=== PATIENT | female | born 1960 | race Caucasian/White ===

== ENCOUNTER 2018-08-07 15:58 | Outpatient (CLI) | payer MEDICARE, SELFPAY ==
--- NOTE | 2018-08-07 11:17 | DI.RAD_ITS ---
SYMPTOM/DIAGNOSIS: NECK PAIN M54.2 CERVICAL SPINE: Odontoid, AP lateral and bilateral oblique views: The odontoid is intact. The lateral masses are well aligned. Comparison examination is 10/07/16 There are again seen post surgical changes of anterior cervical disc fusion at C4-C5. There are end plate osteophytes at all levels of the cervical spine. Mild disc space narrowing is seen at C6-C7. There are hypertrophic changes of the facets noted. There is mild to moderate narrowing of the neural foramen bilaterally from C3-4 through C6-7. No acute fractures or subluxations are seen. The prevertebral soft tissues are unremarkable. IMPRESSION: Moderate degenerative changes in the cervical spine.
== END 2018-08-07 16:18 ==
PROVIDERS: PCP Family Medicine; Visit Provider Family Medicine
DX: M54.2 Cervicalgia (principal); M50.323 Other cervical disc degeneration at C6-C7 level; Z98.1 Arthrodesis status
CPT/HCPCS: 72050

== ENCOUNTER 2019-06-14 11:58 | Outpatient (CLI) | payer MEDICARE, SELFPAY ==
--- NOTE | 2019-06-14 11:30 | DI.RAD_ITS ---
SYMPTOM/DIAGNOSIS: PAIN, R52 LEFT SHOULDER: There is mild spurring at the AC joint. There is a calcification seen adjacent to the humeral head which could indicate calcific tendinitis. There is mild spurring at the glenoid. The humeral head is normally positioned. IMPRESSION: Mild degenerative changes. Calcific tendinosis.
[2019-06-14 12:45] LABS: Abs Immature Grans 0.01 k/cumm (0.0-0.09); Absolute Basophil Count 0.01 k/cumm (0.0-0.2); Absolute Eosinophil Count 0.09 k/cumm (0.0-0.7); Absolute Lymphocyte Count 2.01 k/cumm (1.2-3.4); Absolute Monocyte Count 0.33 k/cumm (0.11-0.7); Absolute Neutrophil Count 2.04 k/cumm (1.2-6.7); Basophils % 0.2; HGB 12.8 g/dL (12.0-15.5); Immature Grans % 0.2; Lymphocytes % 44.8; Mean Corp. HGB Concentration 32.8 g/dL (32.0-36.0); Mean Corpuscular Hemoglobin 31.4 pg (27.0-33.0); Mean Corpuscular Volume 95.8 fL (80-95); Mean Platelet Volume 10.5 fL (8.0-11.0); Monocytes % 7.3; Neutrophils % 45.5; Platelet Count 206 x1000/uL (130-400); RBC 4.07 m/cumm (4.00-5.20); RBC Distribution Width 13.1 % (11.7-14.6); White Blood Cell Count 4.49 k/cumm (4.4-10.8)
[2019-06-14 14:18] LABS: ALT 23 U/L (12-78); AST 18 U/L (15-37); Albumin 3.6 g/dL (3.4-5.0); Alkaline Phosphatase 79 U/L (46-116); Anion Gap 6.6 mmol/L (3-11); BUN 12 mg/dL (7-18); Bilirubin, Total 0.2 mg/dL (0.2-1.0); CO2 30.4 mmol/L (21.0-32.0); CREATININE 0.96 mg/dL (0.55-1.02); Chloride 104 mmol/L (98-107); Estimated GFR 59.49 (mL/min/1.73m2); Glucose 111 mg/dL (70-100); Potassium 4.6 mmol/L (3.5-5.1); Sodium 141 mmol/L (136-145); TSH (W/Ref FT4) 3.12 uIU/mL (0.36-3.74); Total Protein 6.6 g/dL (6.4-8.2)
== END 2019-06-14 12:18 ==
PROVIDERS: PCP Family Medicine; Visit Provider Internal Medicine
DX: M25.512 Pain in left shoulder (principal); E03.9 Hypothyroidism, unspecified; R50.9 Fever, unspecified; M54.2 Cervicalgia; M79.7 Fibromyalgia; M19.012 Primary osteoarthritis, left shoulder; M75.32 Calcific tendinitis of left shoulder
CPT/HCPCS: 36415; 80053; 73030; 84443; 85025

== ENCOUNTER 2020-01-31 10:37 | Outpatient (CLI) | payer MEDICARE, SELFPAY ==
--- NOTE | 2020-01-31 10:30 | DI.RAD_ITS ---
EXAM: XR WRIST RT COMPLETE CLINICAL HISTORY: R wrist pain TECHNIQUE: COMPARISON: No exams were available for comparison FINDINGS: Three views were obtained. Carpal alignment appears within normal limits. Minimal degenerative spur ring noted at navicular multangular joint. Otherwise the bones appear intact. IMPRESSION:
== END 2020-01-31 10:57 ==
PROVIDERS: PCP Family Medicine; Referring Provider Family Medicine; Visit Provider Student in an Organized Health Care Education/Training Program
DX: M25.531 Pain in right wrist (principal); M19.031 Primary osteoarthritis, right wrist; M65.4 Radial styloid tenosynovitis [de Quervain]
CPT/HCPCS: 20550; 99214; 73110; J1030

== ENCOUNTER → 2020-04-27 09:15 | Outpatient (BNVA) | payer MEDICARE, SELFPAY | PROVIDERS: PCP Family Medicine; Referring Provider Family Medicine; Visit Provider Student in an Organized Health Care Education/Training Program | DX: M65.4 Radial styloid tenosynovitis [de Quervain] (principal); M65.831 Other synovitis and tenosynovitis, right forearm | CPT/HCPCS: 20551; 99213; J1030 ==

== ENCOUNTER 2020-08-21 08:55 | Outpatient (CLI) | payer MEDICARE, SELFPAY ==
[2020-08-23 06:29] LABS: Patient Race White; SARS-CoV-2 RNA Undetected (Undetected); SARS-CoV-2 Specimen Source Nasopharynx
== END 2020-08-21 09:15 ==
PROVIDERS: PCP Nurse Practitioner; Visit Provider Nurse Practitioner
DX: J02.9 Acute pharyngitis, unspecified (principal); R05 Cough
CPT/HCPCS: U0003

== ENCOUNTER 2020-08-28 01:15 | Outpatient (CLI) | payer MEDICARE, SELFPAY ==
--- NOTE | 2020-08-28 06:46 | DI.MRI_ITS ---
EXAM: MR CERVICAL SPINE WO CLINICAL HISTORY: IMPINGEMENT SYNDROME LT SHOULDER,M75.42 TECHNIQUE: Multiplanar multisequence MRI of the cervical spine was performed without intravenous con trast. COMPARISON: MR MRI - CERVICAL SPINE WO CONT from 11/08/2010 CR CERV SP.WITH OBL OR FLEX/EXT from 10/07/2016 FINDINGS: There has been previous anterior fusion from C4 through C6. At C2-3, there is moderate loss of disc height. There are prominent endplate osteophytes and disc bul ging. The osteophytes are eccentric toward the right. There is effacement of the anterior CSF space and right neural foraminal narrowing. At C3-4, there are broad-based disc osteophytes, also eccentric toward the right. There is severe jorge l ateral neural foraminal narrowing, greater on the right. There is also narrowing of the AP dimension of the canal. There is also some thinning of the cord at this level. Canal is patent at the level of the fusion. There is some high signal within the cord at the C6-7 lev el. There is loss of disc height and broad-based disc osteophytes at C6-7 causing bilateral neural fo raminal narrowing and narrowing of the AP dimension of the canal. The C7-T1 and T1-2 levels are unrem arkable. There are small disc osteophytes at T2-3. IMPRESSION: Postsurgical changes with anterior fusion in the mid to lower cervical spine. Degenerative disc goff es at the remaining levels cause bilateral neural foraminal narrowing and narrowing of the AP dimensi on of the canal. Abnormal high signal is seen in the cord at the C6 and C7 levels. Cord thinning is s een at the C3-4 level. DATA REPOSITORY:
--- NOTE | 2020-08-28 06:46 | DI.MRI_ITS ---
EXAM: MR LUMBAR SPINE WO CLINICAL HISTORY: LT LUMBAR RADICULOPATHY,M54.16. TECHNIQUE: Multiplanar multisequence MRI was performed. COMPARISON: MR MRI - LUMBAR SPINE WO CONTRAST from 07/04/2015 FINDINGS: The vertebral bodies are well maintained in height. The conus medullaris appears normal. There is mi ld disc bulging in the lower thoracic levels and from L1-2 throughout L3-4. At L4-5, there is moderat e disc bulging, eccentric toward the left. There are prominent facet degenerative changes and ligamen tous hypertrophy. There is severe neural foraminal encroachment on the left side. There is slight emy tral canal stenosis. There is mild right neural foraminal narrowing. The facet degenerative changes c ause mild spondylolisthesis. Prominent facet degenerative changes are also seen at L 5 S1. There is n o significant central canal stenosis or neural foraminal narrowing. IMPRESSION: Combination of disc bulging and facet degenerative changes causes severe left neural foraminal narro wing at L4-5. There is also mild spondylolisthesis and mild central canal stenosis. DATA REPOSITORY:
== END 2020-08-28 01:35 ==
PROVIDERS: PCP Nurse Practitioner; Visit Provider Nurse Practitioner
DX: M47.812 Spondylosis without myelopathy or radiculopathy, cervical region (principal); M48.02 Spinal stenosis, cervical region; M75.42 Impingement syndrome of left shoulder; M43.16 Spondylolisthesis, lumbar region; M54.16 Radiculopathy, lumbar region; M48.061 Spinal stenosis, lumbar region without neurogenic claudication
CPT/HCPCS: 72141; 72148

== ENCOUNTER → 2020-09-04 12:50 | Outpatient (BNVA) | payer MEDICARE, SELFPAY | PROVIDERS: PCP Nurse Practitioner; Referring Provider Nurse Practitioner; Visit Provider Surgery | DX: M79.89 Other specified soft tissue disorders (principal); Z11.59 Encounter for screening for other viral diseases | CPT/HCPCS: 99203; 99213 ==

== ENCOUNTER 2020-09-08 02:06 | Outpatient (CLI) | payer MEDICARE, SELFPAY ==
[2020-09-11 09:59] LABS: SARS-CoV-2 RNA Not Detected (NotDetected); SARS-CoV-2 RNA Source Nasal/Nares
== END 2020-09-08 02:26 ==
PROVIDERS: PCP Nurse Practitioner; Visit Provider Surgery
DX: Z01.818 Encounter for other preprocedural examination (principal); Z11.59 Encounter for screening for other viral diseases
CPT/HCPCS: U0003

== ENCOUNTER 2020-09-29 01:41 | Outpatient (CLI) | payer MEDICARE, SELFPAY ==
[2020-10-01 11:59] LABS: SARS-CoV-2 RNA Not Detected (NotDetected)
[2020-10-01 12:00] LABS: SARS-CoV-2 RNA Source Nasal/Nares
== END 2020-09-29 02:01 ==
PROVIDERS: PCP Nurse Practitioner; Visit Provider Surgery
DX: Z11.59 Encounter for screening for other viral diseases (principal); Z01.818 Encounter for other preprocedural examination
CPT/HCPCS: U0003

== ENCOUNTER 2020-10-03 06:12 | Day surgery (SDC) | payer MEDICARE, SELFPAY ==
[2020-10-03 06:28] VITALS: BP 97/72; PULSE 56; RESP 17; TEMP 36.8; O2SAT 97
[2020-10-03] MEDS: Lactated Ringers 1,000 ML 80 ML IV (06:59)
--- NOTE | 2020-10-03 07:10 | PDOC.DSDIS_ITS ---
Discharge Plan Disposition Patient Disposition: HOME Condition: Good Discharge Details Reason For Visit: Excision right elbow lipoma Attending Provider: Jennifer Calloway Primary Care Provider: Reva Hernandez Home Meds and New Rx's Prescriptions: Continued oxycodone 5 mg capsule 5 mg PO Q4H PRN MDD 30 mg Qty: 60 RF: 0 oxybutynin chloride 5 mg tablet 5 mg PO BID Qty: 180 RF: 4 escitalopram oxalate 20 mg tablet 20 mg PO DAILY Qty: 90 RF: 4 multivitamin 1 EACH tablet 1 ea PO DAILY RF: 0 tizanidine 4 mg capsule 4 mg PO TID PRN (Reason: muscle spasticity) Qty: 90 RF: 3 levothyroxine 25 mcg tablet 25 mcg PO DAILY Qty: 90 RF: 4 lorazepam 0.5 mg tablet 0.5 mg PO BID PRN (Reason: anxiety) Qty: 20 RF: 0 gabapentin 300 mg capsule 600 mg PO TID Qty: 270 RF: 4 imipramine HCl 10 mg tablet 10 mg PO HS Qty: 90 RF: 4 zinc 50 mg Capsule 50 mg PO BID RF: 0 cholecalciferol (vitamin D3) [Vitamin D3] 125 mcg (5,000 unit) Tablet 125 mcg PO DAILY RF: 0 B12 Active 1,000 mcg Tablet,Chewable 2,500 mcg PO DAILY RF: 0 Discharge Instructions Additional Instructions: The top bandage can be removed tomorrow. The steri strips will usually stick for about a week. When the edges start to curl up, they can be removed. It is okay to shower tomorrow, the water can run over the steri strips Do not swim or soak in a tub for two weeks Call for any concerns including fever, increased pain, incision redness or drainage. Keep lifting light for a week. Walking and stairs are fine. Do not drive if on narcotic pain meds or if limited by pain. May use Tylenol alternating with ibuprofen for pain control. Ice is also an option. The maximum dose for Tylenol is 4000 mg/day. May use ibuprofen 800 mg every 8 hours as needed. If concerned about constipation, you may use a stool softener or milk of magnesia. Referrals: Jennifer Calloway MD [ [facility] STAFF PHYSICIAN] - (Return as needed for a postop check) Activity:: Keep lifting light for one week Remove Dressings/Wound Care:: 24 hours Shower/Bathe:: 24 hours Diet:: As Tolerated Discharge Orders Discharge Orders: Discharge Order (Routine); Ordered 10/03/20 Ordered By: Jennifer Calloway DS: Diagnosis Discharge Diagnosis (1) Mass of soft tissue of elbow: Status: Acute
--- NOTE | 2020-10-03 07:13 | ROE_ITS ---
Date of service: 10/03/20 Time of Service: 08:26 Operative Note Operative Note DATE OF PROCEDURE: 10/03/20 PRE-OP DIAGNOSIS: Right elbow soft tissue mass POST-OP DIAGNOSIS: other (Right elbow lipoma) PROCEDURE: Excision right elbow soft tissue mass SURGEON: Jennifer Calloway CLERK TELEGRAPH SERVICE: Lyubov Barriga ANESTHESIA: MAC and local Indications: This 60 year old female presents with a bothersome soft tissue mass on her medial right elbow. Procedure Description: The patient was placed supine on the operating table and her right elbow prepped and draped sterilely. The mass was located in the antecubital fossa at the more medial aspect. The skin here was infiltrated with local anesthetic and a transverse incision made over the lump. Subcutaneous tissue was divided sharply to reveal a well-defined and slightly lobulated lipo ma. This was dissected free of the surrounding subcutaneous tissue with a combination of blunt and sharp dissection. It was removed intact and measured approximately 5 cm. This was sent to pathology. No residual lipoma was palpated in the cavity. There is good hemostasis so the subcutaneous tissue was closed with interrupted 4 Monocryl suture and the skin closed with a running 4 Monocryl subcuticular stitch. She tolerated the procedure well and was stable to recovery
[2020-10-03] MEDS: Bupivacaine 0.5% Pres-Free 30 ML VIAL (08:00)
--- NOTE | 2020-10-03 08:06 | SOFT_PTH ---
PATIENT: Liss Viera LOC: [facility] U#:[id number] AGE/SX: 60/F ROOM: RE10/03/[address]: Jennifer Calloway MD : 1960 BED: DIS: 10/03/2020 SPEC #: [id number] RECD: 10/03/20 12:59 STATUS: BC REQ #: [id number] MADDIE: 10/03/20 08:[address]: Jennifer Calloway DEPT: Surgical Specimen RECD BY: Liss Ann ENTERED: 10/03/20 13:00 SP TYPE: SOFT OTHR DR: Reva Hernandez, PhD GROUND OPERATIONS SUPERVISOR Tissues: 1 - SOFT TISSUE MISC (INC. LIPOMA) Procedures: GROSS AND MICRO LEVEL 3 Comments: [id number]
[2020-10-03] MEDS: Lidocaine 1% Multi-Dose 50 ML VIAL (08:15)
[2020-10-03 08:51] VITALS: BP 93/54; PULSE 50; RESP 16; TEMP 36.2; O2SAT 96
== END 2020-10-03 09:12 | disposition home or self-care (01) ==
PROVIDERS: PCP Nurse Practitioner; Visit Provider Surgery
PROC: (CPT 24071; principal; 2020-10-03 07:30)
DX: D17.21 Benign lipomatous neoplasm of skin and subcutaneous tissue of right arm (principal); E03.9 Hypothyroidism, unspecified; R00.1 Bradycardia, unspecified; G47.30 Sleep apnea, unspecified
CPT/HCPCS: 24071; 88304; J2001; J2405; J3010

== ENCOUNTER 2020-10-18 01:28 | Outpatient (CLI) | payer MEDICARE, SELFPAY ==
--- NOTE | 2020-10-18 | DI.MAMMO_ITS ---
EXAM: MG MAMMO SCREEN CALL BACK BI CLINICAL HISTORY: F/U MAMMO, PROMINENT ASYMMETRIC DENSITY LT BREAST,RT INTRAMAMMARY LYMPH NOD. TECHNIQUE: Bilateral full field digital CC and MLO mammographic images were obtained with 3D tomosyn thesis and utilizing computer aided detection (CAD). COMPARISON: Prior mammograms were reviewed, recent being 10/10/2020. FINDINGS: For sleep, additional spot view of the posterior nodule in the right breast was performed and this re veals that this nodule is a benign appearing lymph node. Secondly, additional spot 3D spot views area described in the opposite-left breast were performed, so mewhat equivocal. Therefore proceed with ultrasound which did not reveal significant focal findings. IMPRESSION: No radiographic evidence of malignancy. BI-RADS Category 2 - Benign Findings Breast Density - Category B - Scattered areas of fibroglandular density Breast density Category C or D implies that the patient has dense breast tissue. Dense breast tissue can make it harder to find cancer on a mammogram. Dense breast tissue is also associated with an incr eased risk of breast cancer. This information about the result of the mammogram report was provided to the patient to raise their awareness. Use this report when you speak with the patient about their risks for breast cancer, which includes their family history. At that time, you may recommend additional screening tests (Ultrasoun d or MRI) as these tests may add significant information. A negative radiographic report should not delay biopsy if a dominant or clinically suspicious mass is present. Up to ten percent of cancers are not identified on mammography. A negative report may reinforce clinical impression. Adenosis and dense breasts may obscure an underlying neoplasm. False positive reports average 6 to 10%. Patient will receive a letter notifying them of these results.
--- NOTE | 2020-10-18 | DI.US_ITS ---
EXAM: US BREAST LT LIMITED CLINICAL HISTORY: F/U MAMMO, LEFT BREAST nodule TECHNIQUE: Ultrasound left breast performed using standard protocol. COMPARISON: Prior mammograms reviewed, including today's diagnostic mammogram. FINDINGS: No evidence of solid or significant cystic lesions seen. 4 millimeter benign-appearing lipoma is inc identally noted in the para areolar region. IMPRESSION: No sonographically suspicious finding. Appropriate follow-up is to keep this patient a yearly mammogr am schedule, with earlier imaging if a self detected breast change is noted. BI-RADS Category 2 - Benign Findings DATA REPOSITORY:
== END 2020-10-18 01:48 ==
PROVIDERS: PCP Nurse Practitioner; Visit Provider Nurse Practitioner
DX: R92.8 Other abnormal and inconclusive findings on diagnostic imaging of breast (principal)
CPT/HCPCS: 76642; 77063; 77067

== ENCOUNTER 2020-10-19 04:59 | Outpatient (CLI) | payer MEDICARE, SELFPAY ==
[2020-10-19 12:33] LABS: Hemoglobin A1C 5.3 % (<5.7)
[2020-10-19 12:41] LABS: Calculated LDL 217 mg/dL (<100); Cholesterol 319 mg/dL (<200); HDL Cholesterol 46 mg/dL (40-60); TSH 2.82 uIU/mL (0.36-3.74); Triglyceride 281 mg/dL (<150)
== END 2020-10-19 05:19 ==
PROVIDERS: PCP Nurse Practitioner; Visit Provider Nurse Practitioner
DX: Z48.817 Encounter for surgical aftercare following surgery on the skin and subcutaneous tissue (principal)
CPT/HCPCS: 36415; 80061; 83036; 84443

== ENCOUNTER → 2020-11-17 12:59 | Outpatient (BNVA) | payer MEDICARE, SELFPAY | PROVIDERS: PCP Nurse Practitioner; Referring Provider Nurse Practitioner; Visit Provider Physical Therapy Assistant | DX: Z12.11 Encounter for screening for malignant neoplasm of colon (principal) ==

== ENCOUNTER 2020-11-28 02:45 | Outpatient (CLI) | payer MEDICARE, SELFPAY ==
[2020-11-29 17:20] LABS: COVID-19 RT-PCR UVMMC Result Negative (Negative)
== END 2020-11-28 03:05 ==
PROVIDERS: PCP Nurse Practitioner; Visit Provider Surgery
DX: Z11.52 Encounter for screening for COVID-19 (principal); Z01.818 Encounter for other preprocedural examination
CPT/HCPCS: U0003

== ENCOUNTER 2020-12-01 10:03 | Day surgery (SDC) | payer MEDICARE, SELFPAY ==
[2020-12-01 10:33] VITALS: BP 123/80; PULSE 55; RESP 14; TEMP 36.3; O2SAT 92
[2020-12-01] MEDS: Lactated Ringers 1,000 ML 80 ML IV (10:45)
--- NOTE | 2020-12-01 12:14 | COLE_ITS ---
Date of service: 12/01/20 Time of Service: 12:14 Colonoscopy Report Date of procedure: 12/01/20 Pre-op diagnosis general: polyp Post-op diagnosis procedure note: other (diverticula ) Surgeon: Roxy Garza Anesthesia proc note operative: MAC Estimated blood loss (mL): 0 Pathology: none sent Complications: None Disposition: same day Prep: Miralax/Dulcolax Retraction Time: 10 mins Procedure Description: After informed consent was obtained the patient was taken to the procedure room and placed in a left decubitous position. Monitors were applied and a time out was done. The patients name, date of , procedure, al lergies to medications and metal in their body was reviewed. The patient was then sedated. Once sedated and comfortable a rectal exam was done. External exam was normal. Internal exam revealed a normal sphincter tone and no palpable masses. The scope was then introduced and retrofelexed. no internal hemorrhoids were identified. The scope was then advanced to the asending colon - see below. The TI and appendiceal orifice were identified. The prep was good . The scope was then slowly retracted over 10 minutes back into the rectum. She does have moderate diverticular dx that does carry all the way over to the right side of the colon. there are no signs of active bleeding or infection, She has very poor tone and is extremely tortuous. I was unable to get enter the cecum after 40 mins of trying, adn the procedure is abandoned for patient safety. There are no polyps. I did work the scope into the right colon, put could not pop into the cecum. The scope was removed and the patient was woken up and taken back to Same day surgery in stable condition. The patient tolerated the procedure well and there were no immediate complications. Follow up: The patient does not need to have another colonoscopy, unless they develop changes in bowel habits or other new gastrointestinal complaints.
--- NOTE | 2020-12-01 12:17 | PDOC.DSDIS_ITS ---
Discharge Plan Disposition Patient Disposition: HOME Condition: Good Discharge Details Reason For Visit: colon scope Attending Provider: Roxy Garza Primary Care Provider: Reva Hernandez Home Meds and New Rx's Prescriptions: Continued oxycodone 5 mg capsule 5 mg PO Q4H PRN MDD 30 mg Qty: 60 RF: 0 oxybutynin chloride 5 mg tablet 5 mg PO BID Qty: 180 RF: 4 escitalopram oxalate 20 mg tablet 20 mg PO DAILY Qty: 90 RF: 4 Adult Probiotic 3 billion cell capsule 3,000 mmu cells PO DAILY RF: 0 CBD oil 6 mg PO RF: 0 multivitamin 1 EACH tablet 1 ea PO DAILY RF: 0 tizanidine 4 mg capsule 4 mg PO TID PRN (Reason: muscle spasticity) Qty: 90 RF: 3 levothyroxine 25 mcg tablet 25 mcg PO DAILY Qty: 90 RF: 4 lorazepam 0.5 mg tablet 0.5 mg PO BID PRN (Reason: anxiety) Qty: 20 RF: 0 imipramine HCl 10 mg tablet 10 mg PO HS Qty: 90 RF: 4 atorvastatin 40 mg tablet 40 mg PO QPM Qty: 90 RF: 3 gabapentin 300 mg capsule 600 mg PO TID Qty: 270 RF: 4 cholecalciferol (vitamin D3) [Vitamin D3] 125 mcg (5,000 unit) Tablet 125 mcg PO DAILY RF: 0 B12 Active 1,000 mcg Tablet,Chewable 2,500 mcg PO DAILY RF: 0 Discontinued polyethylene glycol 3350 17 gram/dose powder 238 g PO ONCE Qty: 238 RF: 0 bisacodyl [Dulcolax (bisacodyl)] 5 mg tablet,delayed release (DR/EC) 5 mg PO ONCE Qty: 4 RF: 0 Discharge Instructions Additional Instructions: Findings:diverticula follow a high-fiber diet and avoid straining to move your bowels. If you still have problems with constipation, I suggest she start a fiber supplement, see attached Follow up: If you are having any abdominal pain that persists for 2 weeks, changes in your bowel habits, any bleeding that persists for more than 48 hours, any unexplained weight loss, please seek medical attention. Otherwise, you do not need to repeat the colonoscopy, unless you are having any any changes or symptoms of your GI tract, as mentioned above. Please call if you develop: fevers >101.5 Nausea or Vomiting Abdominal pain that is not transient DAY SURGERY UNIT POST COLONOSCOPY INSTRUCTIONS 1. Because there will be medication in your system for the next 24 hours, you may feel a little sleepy. Your coordination will be affected. Therefore: a. Do not drive or operate dangerous equipment for 24 hours. b. Do not drink alcohol beverages for 24 hours (not even beer). c. Plan to go home and rest for the day. 2. Generally there are no restrictions on your activity after a day or so has gone by, but you may feel a bit fatigued for a few days. 3 After you arrive home you may have a light meal and return to a normal diet as you can tolerate it without feeling sick to your stomach. 4. After surgery, you may feel pain or discomfort. This should be only transient, but if it persists please contact your doctor. 5. If there are any questions regarding the findings of your procedure, please feel free to contact your doctor. 6. If you are unable to contact your doctor with a problem, contact the hospital at [phone]. 7. Continue all your regular medications unless directed otherwise. I understand the above instructions and have no questions. Signature of Patient or Responsible Adult Escort Date/Time Name of Responsible Adult Escort Signature of Nurse Date/Time DIVERTICULAR DISEASE OVERVIEW ? A diverticulum is a pouch-like structure that can form through points of weakness in the muscular wall of the colon (ie, at points where blood vessels pass through the wall). Diverticulosis affects men and women equally. The risk of diverticular disease increases with age. It occurs throughout the world but is seen more commonly in developed countries. WHAT IS DIVERTICULAR DISEASE? Diverticulosis ? Diverticulosis merely describes the presence of diverticula. Diverticulosis is often found during a test done for other reasons, such as flexible sigmoidoscopy, colonoscopy, or barium enema. Most people with diver ticulosis have no symptoms and will remain symptom free for the rest of their lives. A person with diverticulosis may have diverticulitis, or diverticular bleeding. Diverticulitis ? Inflammation of a diverticulum (diverticulitis) occurs when there is thinning and breakdown of the diverticular wall. This may be caused by increased pressure within the colon or by hardened particles of stool, which can become lodged within the diverticulum. The symptoms of diverticulitis depend upon the degree of inflammation present. The most common symptom is pain in the left lower abdomen. Other symptoms can include nausea and vomiting, constipation, diarrhea, and urinary symptoms such as pain or burning when urinating or the frequent need to urinate. Diverticulitis is divided into simple and complicated forms. ?Simple diverticulitis, which accounts for 75 percent of cases, is not associated with complications and typically responds to medical treatment without surgery. ?Complicated diverticulitis occurs in 25 percent of cases and usually requires surgery. Complications associated with diverticulitis can include the following: ?Abscess ? a localized collection of pus ?Fistula ? an abnormal tract between two areas that are not normally connected (eg, bowel and bladder) ?Obstruction ? a blockage of the colon ?Peritonitis ? infection involving the space around the abdominal organ ?Sepsis ? overwhelming body-wide infection that can lead to failure of multiple organs Diverticular bleeding ? Diverticular bleeding occurs when a small artery located within a diverticulum is eroded and bleeds into the colon. Diverticular bleeding usually causes painless bleeding from the rectum. In approximately 50 percent of cases, the person will see maroon or bright red blood with bowel movements. Is bleeding with a bowel movement normal? ? It is not normal to see blood in a bowel movement; this can be a sign of several conditions, most of which are not serious (eg, hemorrhoids) but some of which are serious and require immediate treatment. Anyone who sees blood after a bowel movement should consult with their healthcare provider to determine if further testing or evaluation is needed. DIVERTICULOSIS AND DIVERTICULITIS DIAGNOSIS ? Diverticulosis is often found during tests performed for other reasons. ?Barium enema ? This is an x-ray study that uses barium in an enema to view the outline of the lower intestinal tract. This is an older test and has been largely replaced by computed tomography (CT) scan. ?Flexible sigmoidoscopy ? This is an examination of the inside of the sigmoid colon with a thin, flexible tube that contains a camera. ?Colonoscopy ? This is an examination of the inside of the entire colon. ?CT scan ? A CT scan is often used to diagnose diverticulitis and its complicati ons. If diverticulitis (not just diverticulosis) is suspected, the above three tests should not be used because of the risk of perforation. TREATMENT Diverticulosis ? People with diverticulosis who do not have symptoms do not require treatment. However, most clinicians recommend increasing fiber in the diet, which can help to bulk the stools and possibly prevent the development of new diverticula, diverticulitis, or diverticular bleeding. Fiber is not proven to prevent these conditions in all patients but may help to control recurrent episodes in some. Increase fiber ? Fruits and vegetables are a good source of fiber. Fiber content of packaged foods can be calculated by reading the nutrition label. Seeds and nuts ? Patients with diverticular disease have historically been advised to avoid whole pieces of fiber (such as seeds, corn, and nuts) because of concern that these foods could cause an episode of diverticulitis. However, this belief is completely unproven. We do not suggest that patients with diverticulosis avoid seeds, corn, or nuts. Diverticulitis ? Treatment of diverticulitis depends upon how severe your symptoms are. Home treatment ? If you have mild symptoms of diverticulitis (mild abdominal pain, usually left lower abdomen), you can be treated at home with a clear liquid diet and oral antibiotics. However, if you develop one or more of the following signs or symptoms, you should seek immediate medical attention: ?Temperature >100.1?F (38?C) ?Worsening or severe abdominal pain ?An inability to tolerate fluids Hospital treatment ? If you have moderate to severe symptoms, you may be hospitalized for treatment. During this time, you are not allowed to eat or drink; antibiotics and fluids are given into a vein. If you develop an abscess of the colon, you may require drainage of the abscess (usually performed by placing a drainage tube across the abdominal wall) or by surgically opening the affected area. Surgery ? If you develop a generalized infection in the abdomen (peritonitis), you will usually require an emergency operation. A two-part operation may be necessary in some cases. ?The first operation involves removal of the diseased colon and creation of a colostomy. A colostomy is an opening between the colon and the skin, where a bag is attached to collect waste from the intestine. The lower end of the colon is temporarily sewed closed to allow it to heal. ?Approximately three to six months later, a second operation is performed to reconnect the two parts of the colon and close the opening in the skin. You are then able to empty your bowels through the rectum. Sometimes patients require up to a year to recover from the first operation, depending on how sick they were. In non-emergency situations, the diseased area of the colon can be removed and the two ends of the colon can be reconnected in one operation, without the need for a colostomy. Surgery versus medical therapy ? An operation to remove the diseased area of the colon may be necessary if you do not improve with medical therapy. After an episode of uncomplicated diverticulitis, elective surgery is generally not required as the risk of another attack or requiring emergency surgery is low. However, patients with persistent symptoms attributable to diverticulitis, a history of complicated diverticulitis, or a compromised immune system should be evaluated for possible surgery to prevent another attack. In such patients, another attack has been associated with a higher risk of complications or . Of course, the decision will also depend in part upon your other medical conditions and ability to undergo surgery. In many cases, an elective operation can be performed laparoscopically, using small incisions, rather than the typical vertical (up and down) abdominal inc ision. Laparoscopic surgery usually allows you to recover more quickly and shortens the hospital stay. After diverticulitis resolves ? After an episode of diverticulitis resolves, if you have not had a recent colonoscopy, the entire length of the colon should be evaluated to determine the extent of disease and to rule out the presence of abnormal lesions such as polyps or cancer. Recommended tests include colonoscopy, barium enema and sigmoidoscopy, or CT colonography. Diverticular bleeding ? Most cases of diverticular bleeding resolve on their own. However, some people will need further testing or treatment to stop bleeding, which may include a colonoscopy, angiography (a treatment that blocks off the bleeding artery), bleeding scan, or surgery. DIVERTICULAR DISEASE PROGNOSIS Diverticulosis ? Over time, diverticulosis may cause no problems or it may cause episodes of bleeding and/or diverticulitis. Approximately 15 to 25 percent of people with diverticulosis will develop diverticulitis, while 5 to 15 percent will develop diverticular bleeding. Diverticulitis ? Approximately 85 percent of people with uncomplicated diverticulitis will respond to medical treatment, while approximately 15 percent of patients will need an operation. After successful treatment for a first attack of diverticulitis, one-third of patients will remain asymptomatic, one- third will have episodic cramps without diverticulitis, and one-third will go on to have a second attack of diverticulitis. The prognosis tends to remain similar following a second attack of diverticulitis. Only 10 percent of people remain symptom-free after a second attack. Subsequent attacks tend to be of similar severity, not increasing in severity as previously believed. High Fiber Diet What is Dietary Fiber? All fiber comes from plants, bushes, mode or trees. Of course, the ones that we eat provide us with fruits, vegetables and grains. There are many different types of fiber but the three that are most important to the health of the body are: Insoluble Fiber This fiber does not dissolve in water, nor is it fermented by the bacteria residing in the colon. Rather, it retains water and in so doing, helps to promo te a larger, bulkier and more regular bowel activity. This, in turn, may be important in preventing disorder such as diverticulosis and hemorrhoids, and in sweeping out certain toxins and cancer causing carcinogens. Sources of insoluble fiber are: ? whole grain wheat and other whole grains ? corn bran, including popcorn, unflavored and unsweetened ? nuts and seeds ? potatoes and the skins from most fruits from trees such as apples, bananas and avocados ? many green vegetables such as green beans, zucchini, celery and cauliflower ? some fruit plants such as tomatoes and kiwi Soluble Fiber These fibers are fermented or used by the colon bacteria as a food source or nourishment. When these good bacteria grow and thrive, many health benefits occur in both the colon and the body. Soluble fiber is present in some degree in most edible plant foods, but the ones with the most soluble fiber include: ? legumes such as peas and most beans, including soybeans ? oats, rye and barley ? many fruits such as berries, plums, apples bananas and pears ? certain vegetables such as broccoli and carrots ? most root vegetables ? psyllium husk supplement products Prebiotic Soluble Fiber These are relatively newly discovered soluble plant fibers. The technical name for this fiber is inulin or fructan. When these soluble fibers are fermented by the good colon bacteria, some further significant health benefits have been shown to occur by research in many medical centers. These soluble prebiotic fibers occur in significant amounts in: ? asparagus ? yams ? onions ? garlic ? bananas ? leeks ? agave ? chicory and other root vegetables such as [place] artichokes ? wheat, rye and barley (smaller amounts) Benefits of a High Fiber Diet The health benefits of a high fiber diet, consumed on a regular basis and reaching recommended amounts (below), are now fairly well-defined. There are some additional benefits in the early research stage with the prebiotic soluble fibers. What is now known regarding a high fiber diet include: Bowel Regularity A high fiber diet promotes regularity with a softer, bulkier and regular stool pattern. This decreases the chance of hemorrhoids, diverticulosis and perhaps colon cancer. Cholesterol and Reduced Triglycerides The soluble fibers are the ones that will reduce cholesterol levels when used on a regular basis. Psyllium husk and prebiotic soluble fiber will also reduce cholesterol. They may also reduce the incidence of coronary heart disease. Oats, flax seeds and legumes or beans are the recommended fibers. Colon Polyps and Cancer It is still not certain if a high fiber diet helps prevent colon cancer. Considerable research suggests that this may occur. Certainly it makes sense to increase regularity and so speed the movement of cancer causing carcinogens through the bowel. In addition, reducing a heavy meat diet reduces the bile flow from the liver in a favorable way. This, too, reduces the amount of carcinogens that reach and are manufactured in the colon. Finally, a high fiber diet, including prebiotic soluble fiber, increases the integrity and health of the wall of the colon. The risk of cancer may be reduced. Colon Wall Integrity A high fiber diet changes the bacterial makeup of the colon toward a more favorable balance. For instance, it is known that those people with obesity, diabetes type 2 and inflammatory bowel disease have a predominance of bad bacteria in the colon. This, in turn, may render the bowel wall weak and allow bacteria and, indeed, even toxins to seep through. A high fiber diet with a modest reduction in animal and meat products may return the bacterial makeup to a more positive balance. This, in particular, has been seen when the soluble fiber prebiotics are added to the diet. Blood Sugar Soluble fiber such as in legumes (beans), oats and in prebiotic fibers slows the absorption of blood sugar and so helps regulate the sugar in the blood. Insoluble fiber on a regular basis is associated with reduced risk of type 2 diabetes. Weight Loss High fiber diets are more filling and give a sense of fullness sooner than an animal and meat based diet does. In addition, the soluble prebiotic fibers have been shown to turn off the hunger hormones produced in the wall of the gut and to increase the hormones that give a sense of fullness. Those hormones are made in the wall of the gut. New medical research has shown that the bacterial makeup in the colon in overweight people is abnormal to the extent that they manufacture and absorb almost twice the number of calories through the colon wall as do normals. Prebiotic fibers (below) will help change this hormonal balancein a favorable way. Bacteria and the Function of the Colon The colon finishes the digestive process. Hopefully, the waste products move through in a nice regular manner. Insoluble fibers help this process by retaining water and so producing a bulkier, softer stool, which is easy to pass. The additional role of the colon is to provide a home for an enormous number of micro-organisms, mostly bacteria. Recent research has shown that there are over 1,000 species of bacteria with a total bacterial count ten times the number of cells in the body. These bacteria play a major role in keeping the colon wall itself healthy. In addition, these good bacteria produce a very strong immune system for the body. They significantly increase calcium absorption and bone density. They provide other documented benefits. It is the soluble fibers in the diet that are so effective in stimulating the growth of good colon bacteria. How Much is Enough? The amount of fiber in food is measured in grams. National nutritional authorities recommend the following amounts of dietary fiber daily. Under Age 50 Over Age 50 Men 38 grams 30 grams Women 25 grams 21 grams For a week or so, it is best to tally the amount of fiber you are consuming. Boxed and packaged foods will have the amount of fiber per serving on the nutrition label. Which Fibers and Which Foods are Best? As noted, healthy fiber is only found in plants. The three major categories are whole grains, fruits and vegetables. Whole Grains Wheat, oats, barley, wild or brown rice, amaranth, buckwheat, bulgur, corn, millet, quinoa, rye, sorghum, teff and triticals. By far, wheat, oats and wild or brown rice are most common. Always buy whole grain products. White bread, baked goods and rolls almost always are made from wheat flour. Wheat flour is white because most of the fiber, vitamins and other nutrients have been removed. Try not buy enriched grains. What this means is that simple white flour has had vitamins added to it by the senior attorney. The word, enriched, implies a good and healthy product. On the contrary, enriched means that most of the fiber has been removed and a few vitamins added. Fruits Fruits come from trees such as apple and pear or from bushes or mode. You should eat a wide variety of fruits, preferably with every meal. In many cases, the skin of a fruit such as apple will contain much of the insoluble fiber while the pulp contains most of the soluble fiber. To the extent possible, buy organic fruits as these will have little or no pesticides. Always wash fruit. Vegetables Eat a wide variety of vegetables. They should be a mainstay of lunch and dinners. Frozen vegetables retain as much nutrition and fiber as fresh vegetables. As with fruit, try to buy organic to reduce any residual pesticide ingestion. Wash fresh vegetables thoroughly. Cruciferous vegetables such as broccoli, [place] sprouts and cauliflower contain certain chemicals such as sulforaphane. This substance has very strong anti-cancer properties and should be eaten frequently. Legumes, Beans, Peas and Soybeans These vegetables have plenty of soluble fiber and should be part of a varied vegetable intake. Beans, in particular, contain a certain type of fiber that may lead to harmless gas or bloating. Nuts and Seeds These are rich sources of fiber and are a good substitute for sweets such as candies and baked sweet goods. While nuts and seeds are rich in fiber, they also contain vegetable fat and so can and do add calories. Read the Labels As noted, fresh and frozen foods are usually better. They have good nutrition and few, if any, chemicals added to them. When buying packaged foods and, in particular grains, look for three things: ? The first word on the label should be whole, such as whole wheat or whole grain. ? Check out the calories and the amount of fiber in a serving. ? How many and what other additives or chemicals are added. Fewer is always better. Do you know what each additive does? Some are added not for the benefit of the entry level buyer but rather for manufacturers. These could and do include sugar, artificial flavor, chemicals to prevent oxidation and spoilage, emulsifiers to blend the product. You have to be a counselor aide. Fiber Facts, Nuggets and Pearls ? For breakfast you can easily get the day started well by using a high fiber, whole grain cereal. Check the labels. Add fruit such as blueberries and bananas. If you are an egg eater, use whole wheat or grain toast. Adding wheat germ gives you a good fiber kick. ? Always use whole grain or wheat with rolls and sandwiches. Does your fast food store not have them? Perhaps you look elsewhere. Eating an occasional black fischer or veggie burger provides variety. ? Snacks should consist of fruit and/or nuts. While nuts are loaded with fiber, they are an energy rich food, meaning they have a lot of calories in a small packet. ? Fruit juices should contain pulp. Clear juices such as clear orange, pear or apple juice contain little fiber and have a lot of fructose. Prune juice is usually high in fiber. ? Homemade soups ? adding fresh or frozen vegetables to a chicken or vegetable stock is a good way to start homemade soup. ? Salads ? adding cooked and then chilled vegetables provide great flavoring to almost any salad. Remember, a ahuja salad has lots of cooked corn in it. Small slices of apples or oranges and nuts such as chopped walnuts or sliced almonds always adds taste, variety and fiber to almost any salad. ? Fruit ? Try to eat fruit of some type with almost every meal. ? Rethink how you place the various foods on your dinner plate. Reducing the portions of the meat or animal food portion to the side with equal or more portions of vegetables, legumes and fruits portion always allows for more fiber. There was never anything magic about making the meat or animal food portion the main part of the dinner plate. Eating from smaller plates can, over time, trick your mind and manager intermediate habit of using a dinner plate. Again, there is nothing magic in an 11, 12, or 13 inch dinner plate. Fiber Supplements There are a variety of fiber supplements available on the food or pharmacy shelves. Psyllium This soluble plant fiber has been used in [place] for over 2,000 years. It is a soluble fiber with mucilage in it. This acts to retain a lot of water and also is fermented by colon bacteria. When 7 grams a day are used, it does lower cholesterol. Metamucil in various forms is psyllium. Methyl Cellulose All the cellulose products come from finely ground wood chips which are then treated in a variety of ways such as boiling in acids. Methyl cellulose is an insoluble fiber which does dissolve in water. It is also an emulsifier, meaning it blends oils and water. Citrucel is methyl cellulose (MC). MC may not be appropriate for Crohn?s disease or ulcerative colitis as several medical studies have shown that certain emulsifiers dissolve the mucous lining of the colon in animals prone to Crohn?s disease. This then allows bacteria to invade the underlying tissue. Inulin Inulin is a soluble prebiotic fiber found in many foods and which are fermented mostly in the left side of the colon. It is available in a supplement as generic inulin and in Fiber Choice. Oligofructose FOS These are also prebiotic fibers. They are fermented very quickly in the right side of the colon. Prebiotin This product is a combination of oligofructose, which feeds the bacteria in the right side of the colon and inulin, which does the same in the left side of the colon. There seems to be a benefit for this particular formula based on medical research. Prebiotic Soluble Fiber These may be the healthiest of all the soluble fibers. They grow in many plants and have had a great deal of research done on them in the last 10-15 years. These fibers are found in asparagus, yams and other root vegetables such as chicory, garlic, onion, leeks and in smaller amounts in wheat. This research has shown the following: ? Increase in good and decrease in bad colon bacteria ? Increase calcium absorption and enhanced bone mass ? Enhanced immune system ? Appetite and weight control by changing the hormone appetite signals to the brain ? May decrease colon cancer incidence ? Reduce or correct a leaky colon Eating a wide variety of plant food up to the recommended amount will likely give you enough prebiotic fiber. Supplements such as Prebiotin can be added to the diet. Short Chain Fatty Acids (SCFA) Some rather remarkable research findings have shown that one of the benefits of ingesting a lot of soluble fiber, in particular the prebiotic ones, results in larger amounts of SCFAs in the colon. These SCFAs are made by the good bacteria in the colon such as Bifidobacter and Lactobacillus. These small molecules have been shown to do the following: ? Enhance the health and integrity of the colon wall ? Provide nourishment for the cells that actually line the colon ? Increases the acidity of the colon which is a very real health benefit ? Stabilize blood sugar for diabetics ? Reduce blood cholesterol and triglyceride ? Significantly enhance immunity ? May be a benefit for Crohn?s disease and ulcerative colitis patients Fiber and Gas Everyone has intestinal gas and that is a good thing. It means that bacteria, hopefully the good ones, are thriving. The normal amount of flatus passed each day depends on sex and what is eaten. The normal number of flatus is 10-20 times a day. When the bacteria that make intestinal gases are growing, it also means that other good bacteria are using the same fibers to grow and produce multiple health benefits, including the production of healthy short-chain fatty acids. These substances are produced quietly in the colon and produce many health-related outcomes. Soluble fiber should always be used in a gradual manner. If too much is consumed at any one time, then excess, but harmless, intestinal gas can occur. People with irritable bowel syndrome are particularly prone to bloating and mild cramping. In this instance, soluble fiber in the diet or supplement should be used in small doses and increased gradually. Finally, prebiotic fibers tend to cause the production of short-chain fatty acids which acidify the colon. This, in turn, reduces or stops the growth of b acteria that make the smelly hydrogen sulfide gases that produce noxious flatus. People who consume many vegetables with prebiotics or take a prebiotic fiber supplement often have non-odoriferous flatus. Fiber and Irritable Bowel Syndrome Irritable bowel syndrome (IBS) is one of the most common disorders of the lower digestive tract. The symptoms of IBS can be quite varied. They can be a mix of several symptoms such as constipation, diarrhea, crampy abdominal discomfort, bloating and gas. An attack of IBS can be triggered by emotional tension and anxiety, poor dietary habits and certain medications. It is now known that infections in the intestine can lead to long-term IBS symptoms. Increased amounts of fiber in the diet can help relieve the symptoms of irritable bowel syndrome by producing soft, bulky stools. This helps to normalize the time it takes for the stool to pass through the colon. Recent medical research with newer techniques has shown some surprising and dramatic findings for IBS patients. Specifically, there is a very significant and abnormal shift of bacteria from those that provide health benefits to those bad bacteria that we really do not want in the gut. The technical name for this bad group of bacteria is called Firmicutes. Along with this abnormal bacterial collection, there is a smoldering low-grade inflammation in the gut wall that may contribute to symptoms. The goal for IBS patients should be to gradually increase the soluble dietary fibers in the diet so as to promote the growth of good bacteria and so suppress the bad ones along with the associated inflammation. IBS patients need to be careful of the amount of soluble fiber they consume. The reason for this is that, while the good colon bacteria thrive on these fibers and produce health benefits, other gas-forming bacteria may generate excessive but harmless gas and subsequent bloating. Thus, soluble plant fibers or a dietary prebiotic supplement should be taken in small initial doses and then gradually increased to tolerance. Fiber and Colon Polyps/Cancer Colon cancer is a major health problem. This disease is most common in Western cultures. It is not seen very often in rural cultures where the diet is mostly plant based. Usually, colon cancer starts out as a colon polyp, a benign mushroom-shaped growth. In time it grows, and in some people it becomes cancero us. Colon cancer is usually always curable if polyps are removed when found or if surgery is performed at an early stage. It is now known that people can inherit the risk of developing colon cancer, but diet is important, too. As noted, there is a very low rate of colon cancer in residents of countries where grains are unprocessed and retain their fiber. It seems that in the [place] world, cancer-containing agents (carcinogens) remain in contact with the colon wall for a longer time and in higher concentrations. So, a large bulky stool may act to dilute these carcinogens by moving them through the bowel more quickly. Less carcinogenic exposure to the colon may mean fewer colon polyps and less cancer. A very current review of the entire world?s literature on the effect of fiber on colon polyps and cancer prevention has shown rather clearly that for every 10 grams of fiber added to the diet, there is a 10% reduction in incidence of colon cancer. So the recommended 30 gram fiber diet would result in a 30% less chance of getting these tumors. There are also substances produced in the colon by the good bacteria that seem to retard certain pre-cancer factors from developing. They are called short- chain fatty acids (SCFA). See above for description of SCFAs. A high fiber diet increases these substances. So, the combination of dietary fiber and the production of short-chain fatty acids have a clear health benefit. Fiber and Diverticulosis Prolonged, vigorous contraction of the colon over a long period of time may result in diverticulosis. This increased pressure causes small and, eventually, larger ballooning pockets to form. These pockets by themselves cause no problem. However, sometimes they become infected (diverticulitis) or even break open (perforate) causing infection or inflammation within the abdomen (peritonitis). A high fiber diet increases the bulk in the stool and thereby reduces the pressure within the colon. By so doing, the formation of pockets may be reduced or possibly even stopped. In the past, many physicians were fearful that seeds as in tomatoes, nuts or berries were harmful and could get inside these pockets and rattle around, causing damage. We now know that this has never been the case and that these foods contain lots of fiber and are actually beneficial for diverticulosis patients. Certain bulking agents such as psyllium are traditional types of bulk producing supplements. Psyllium is a soluble fiber. Combining it with insoluble fiber as in wheat bran or corn bran (no gluten) can enhance this bulking effect even more. A product containing a prebiotic, psyllium and wheat bran is probably a very good combination for bowel regularity. Prebiotin Regularity/Diverticulosis is one such product. Activity:: No lifting over 20 pounds or strenuous activity x24 hours. Diet:: Small light meals x24 hours Discharge Orders Discharge Orders: Discharge Order (Routine); Ordered 12/01/20 Ordered By: Roxy Garza DS: Diagnosis Discharge Diagnosis (1) Diverticula of colon: Status: Acute
[2020-12-01 12:54] VITALS: BP 105/73; PULSE 68; RESP 18; TEMP 36.4; O2SAT 95
== END 2020-12-01 13:23 | disposition home or self-care (01) ==
PROVIDERS: PCP Nurse Practitioner; Visit Provider Surgery
PROC: 0DJD8ZZ Inspection of Lower Intestinal Tract, Via Natural or Artificial Opening Endoscopic (ICD-10-PCS; CPT 45378; principal; 2020-12-01 10:45)
DX: Z12.11 Encounter for screening for malignant neoplasm of colon (principal); Z86.010 Personal history of colon polyps; K57.30 Diverticulosis of large intestine without perforation or abscess without bleeding; Q43.8 Other specified congenital malformations of intestine; G47.33 Obstructive sleep apnea (adult) (pediatric)
CPT/HCPCS: G0105; J2001

== ENCOUNTER 2021-04-24 07:54 | Outpatient (CLI) | payer MEDICARE, SELFPAY ==
[2021-04-24 07:58] VITALS: BP 101/70; PULSE 47; RESP 18; TEMP 36.5; O2SAT 95
[2021-04-24] MEDS: Bupivacaine 0.5% Pres-Free 10 ML VIAL IJ (08:34)
[2021-04-24] MEDS: Omnipaque 240 MG/ML 50 ML BTL IJ (08:34)
--- NOTE | 2021-04-24 08:44 | PDOC.PAIN ---
Pain Clinic Procedure Note Procedure Note Procedure Note: Lumbar/Sacral Medial Branch Blocks Liss Viera has been referred to the [facility] for lumbar/sacral medial branch blocks. Pre-operative diagnosis: lumbar spondylosis Post-operative diagnosis: same as above COMMENTS: patient has predominantly axial back pain, received sustained pain relief from lumbar RFA about 5 years ago. She returns for diagnostic lumbar LMBB targeting L3, L4, L5-DR. She was evaluated by Ms Rachel Zhang APRN in clinic Patient was interviewed and the medical record reviewed. There were no medical, pharmacologic, radiographic or other structural contraindications to attempting fluoroscopically guided local anesthetic lumbar/sacral medial branch blocks. Risks and expected side effects as well as potential benefit of the procedure were reviewed and voiced concerns addressed. The printed consent form was signed and witnessed. Standard time-out procedure was performed. Patient was placed in the prone position on the fluoroscopy table and automated blood pressure cuff and pulse oximeter applied. The skin entry points for approaching the anatomic target points of the segmental medial branches of bilateral L3, L4, L5-DR were identified with anfluoroscopy and marked. Following thorough Chlorhexadine preparation of the skin and draping and 1% lidocaine infiltration of the skin entry points and subcutaneous tissues, a 22 gauge spinal needle was placed under fluoroscopic guidance down on to the target point for each respective segmental medial branch.Position was confirmed in A/P, oblique and lateral views with 0.25ml of omnipaque 240. Coult be this method 0.5ml 0.5% Bupivacaine was injected. Vital signs were stable throughout the procedure and were as recorded in the docflowsheet by the nursing staff. Follow up plans and appointments were discussed and was instructed to keep careful note of how the usual pain was modified by these injections. Specifically was asked to keep a pain diary for the next 24 hours using a numeric pain scale of 0-10 and report these results at the follow-up visit. Post procedure instruction was given as documented in the nursing documentation and having met discharge criteria. Patient was discharged from the [facility]. Based on the medial branches blocked today, if the patient has adequate relief and we are able to proceed to radiofrequency ablation, the treatment should result in the denervation of the bilateral L4/5 and L5/S1 facets. We would expect to denervate a total of 4 facets during the radiofrequency ablation. COMMENTS: patient reports pre-procedure VAS score 4/10 and post-procedure VAS score 0 out of 10. Henrik Bill MD Pain Management CC: Reva Hernandez, PhD INDUSTRIAL MACHINE ASSEMBLER
[2021-04-24 08:45] VITALS: BP 128/80; PULSE 48; RESP 15; O2SAT 95
--- NOTE | 2021-04-24 08:47 | DI.RAD_ITS ---
Exam(s) XR PAIN CLINIC LUMBAR SP 2V EXAM: XR PAIN CLINIC LUMBAR SP 2V CLINICAL HISTORY: Dx:Lumbar radiculopathy TECHNIQUE: 2D and realtime digital imaging was performed. CONTRAST MATERIAL: Refer to procedure report. COMPARISON: No exams were available for comparison FINDINGS: Fluoroscopy was provided for Dr. Bill during the performance of a lumbar medial branch block. Please refer to the procedure report for complete details. Ka,r=20.12 mGy IMPRESSION:
== END 2021-04-24 07:55 | disposition home or self-care (01) ==
LOC: PC 07:55
PROVIDERS: PCP Nurse Practitioner; Visit Provider Internal Medicine
DX: M47.816 Spondylosis without myelopathy or radiculopathy, lumbar region (principal)
CPT/HCPCS: 64493; 64494; 72100; Q9967

== ENCOUNTER → 2021-05-07 15:17 | Outpatient (BNVA) | payer MEDICARE, SELFPAY | PROVIDERS: PCP Nurse Practitioner; Referring Provider Nurse Practitioner; Visit Provider Student in an Organized Health Care Education/Training Program | DX: M25.531 Pain in right wrist (principal); Z98.890 Other specified postprocedural states | CPT/HCPCS: 99214 ==

== ENCOUNTER 2021-05-08 09:22 | Outpatient (CLI) | payer MEDICARE, SELFPAY ==
--- NOTE | 2021-05-08 06:00 | DI.RAD_ITS ---
Exam(s) XR PAIN CLINIC LUMBAR SP 2V EXAM: XR PAIN CLINIC LUMBAR SP 2V CLINICAL HISTORY: Dx: Lumbar Spondylosis TECHNIQUE: 2D and realtime digital imaging was performed. COMPARISON: No exams were available for comparison FINDINGS: C-arm fluoroscopy was utilized by Dr. Bill during reported bilateral lumbar medial branch block. Hard copies show place needle placement at what appear to be the L3-4, L4-5, and L5-S1 levels bilaterally. IMPRESSION: RADIATION DOSE DELIVERED: saige Jackson=15.8 mGy
[2021-05-08 09:35] VITALS: BP 98/58; PULSE 53; RESP 18; TEMP 36.6; O2SAT 98
[2021-05-08 10:16] VITALS: BP 117/84; PULSE 56; RESP 15; O2SAT 95
--- NOTE | 2021-05-08 10:16 | PDOC.PAIN_ITS ---
Pain Clinic Procedure Note Procedure Note Procedure Note: Lumbar/Sacral Medial Branch Blocks Liss Viera has been referred to the [facility] for lumbar/sacral medial branch blocks. Pre-operative diagnosis: lumbar spondylosis Post-operative diagnosis: same as above COMMENTS: patient returns for confirmatory lumbar medial branch nerve block Patient was interviewed and the medical record reviewed. There were no medical, pharmacologic, radiographic or other structural contraindications to attempting fluoroscopically guided local anesthetic lumbar/sacral medial branch blocks. Risks and expected side effects as well as potential benefit of the procedure were reviewed and voiced concerns addressed. The printed consent form was signed and witnessed. Standard time-out procedure was performed. Patient was placed in the prone position on the fluoroscopy table and automated blood pressure cuff and pulse oximeter applied. The skin entry points for approaching the anatomic target points of the segmental medial branches of bilateral L3, L4, L5-DR were identified with anfluoroscopy and marked. Following thorough Chlorhexadine preparation of the skin and draping and 1% lidocaine infiltration of the skin entry points and subcutaneous tissues, a 22 gauge spinal needle was placed under fluoroscopic guidance down on to the target point for each respective segmental medial branch.Position was confirmed in A/P, oblique and lateral views with 0.25ml of omnipaque 240. Coult be this method 0.5ml 2% Lidocaine was injected. Vital signs were stable throughout the procedure and were as recorded in the docflowsheet by the nursing staff. Follow up plans and appointments were discussed and was instructed to keep careful note of how the usual pain was modified by these injections. Specifically was asked to keep a pain diary for the next 24 hours using a numeric pain scale of 0-10 and report these results at the follow-up visit. Post procedure instruction was given as documented in the nursing documentation and having met discharge criteria. Patient was discharged from the [facility]. Based on the medial branches blocked today, if the patient has adequate relief and we are able to proceed to radiofrequency ablation, the treatment should result in the denervation of the bilateral L4/5 and L5/S1 facets. We would expect to denervate a total of 4 facets during the radiofrequency ablation. COMMENTS: patient reports pre-procedure VAS score 7/10 and post-procedure VAS score 0 out of 10. Henrik Bill MD Pain Management CC: Reva Hernandez, PhD PETROLEUM REFINING EQUIPMENT OPERATOR
[2021-05-08] MEDS: Omnipaque 240 MG/ML 50 ML BTL IJ (10:18)
[2021-05-08] MEDS: Lidocaine 2% Pres-Free 5 ML VIAL IJ (10:18)
== END 2021-05-08 09:23 | disposition home or self-care (01) ==
LOC: PC 09:23
PROVIDERS: PCP Nurse Practitioner; Visit Provider Internal Medicine
DX: M47.816 Spondylosis without myelopathy or radiculopathy, lumbar region (principal)
CPT/HCPCS: 64493; 64494; 72100; Q9967

== ENCOUNTER → 2021-05-23 10:52 | Outpatient (BNVA) | payer MEDICARE, SELFPAY | PROVIDERS: PCP Nurse Practitioner; Referring Provider Nurse Practitioner; Visit Provider Nurse Practitioner Gerontology | DX: R39.15 Urgency of urination (principal); K59.00 Constipation, unspecified | CPT/HCPCS: 99215 ==

== ENCOUNTER 2021-06-04 01:15 | Outpatient (CLI) | payer MEDICARE, SELFPAY ==
--- NOTE | 2021-06-04 07:00 | DI.MRI_ITS ---
Exam(s) MR UPPER JOINT RT WO EXAM: MR UPPER JOINT RT WO CLINICAL HISTORY: RT WRIST PAIN,M25.531 TECHNIQUE: Multiplanar multisequence MRI of the shoulder was performed. COMPARISON: CR XR WRIST RT COMPLETE from 01/31/2020 CR XR WRIST RT COMPLETE from 01/31/2020 FINDINGS: MARROW:There is no evidence of fracture, avascular necrosis, nor aggressive bone lesion. Scaphoid and lunate bones appear unremarkable. Mild increased signal in the interosseous ligament but without high-grade tear nor increased interosseous distance. There is no evidence of avascular necro sis of these bones nor of the other carpal row bones. There is no abnormal marrow signal evident in the distal half of the radius (requested field of view) . However, there is a benign subarticular cyst the distal ulna which measures 6 by 5.5 millimeters and this appears to exhibit and neck of communication to the articular surface. There is no surrounding i ntraosseous edema, implying that this is a nonaggressive lesion and indeed prior plain films of January 2020 revealed this finding to exhibit a thin well-defined sclerotic border. There is abnormal signal in the triangle fibrocartilage at this level on the medial aspect of the wrist with some tearing of this substance adjacent to the ulnar styloid and some fluid evident in the distal radio ulnar joint. There is also increased amount of fluid just medial to the articulation between the pisiform and triq uetrum which measures 9 x 4 millimeters and is probably a para-articular ganglion. There are only min imal degenerative changes at the 1st carpometacarpal joint. Carpal tunnel: No abnormal signal. No tenosynovitis. Median nerve unremarkable. Retinaculum intact. Extensor compartments: No evidence of tenosynovitis in the 1st extensor compartment (which would sugg est de Quervain tenosynovitis). Also no significant tenosynovitis in the other extensor tendons over the dorsal aspect of the wrist. IMPRESSION: 1. Predominantly medial side findings as described above including an element of tearing of the trian gle fibrocartilage complex just medial to the ulnar styloid, not associated with prominent ulnar vari ance but associated with some mild increased fluid within the distal radioulnar joint, and a 11 x 9 m illimeter ganglion cyst, as described above 2. Is also a 6 x 5 millimeter degenerative subarticular cyst in the distal ulna, unchanged from plain films of January 2020. Adjacent ulnar styloid appears intact. 3. DATA REPOSITORY:
== END 2021-06-04 01:35 ==
PROVIDERS: PCP Nurse Practitioner; Visit Provider Student in an Organized Health Care Education/Training Program
DX: M67.431 Ganglion, right wrist (principal); S63.501A Unspecified sprain of right wrist, initial encounter; M85.68 Other cyst of bone, other site; X58.XXXA Exposure to other specified factors, initial encounter
CPT/HCPCS: 73221

== ENCOUNTER → 2021-06-14 13:22 | Outpatient (BNVA) | payer MEDICARE, SELFPAY | PROVIDERS: PCP Nurse Practitioner; Referring Provider Nurse Practitioner; Visit Provider Nurse Practitioner Gerontology | DX: R39.15 Urgency of urination (principal); Z79.899 Other long term (current) drug therapy | CPT/HCPCS: 99213 ==

== ENCOUNTER 2021-06-26 10:52 | Outpatient (CLI) | payer MEDICARE, SELFPAY ==
[2021-06-26 11:05] VITALS: BP 112/78; PULSE 57; RESP 18; TEMP 36.9; O2SAT 96
[2021-06-26] MEDS: Lactated Ringers 1,000 ML 80 ML IV (11:43)
[2021-06-26] MEDS: fentaNYL 100 MCG/2 ML VIAL IVP (11:48)
[2021-06-26] MEDS: Midazolam 2 MG/2 ML VIAL IVP ×2 (11:48→12:13)
[2021-06-26 12:20] VITALS: BP 133/85; PULSE 52; RESP 12; O2SAT 98
--- NOTE | 2021-06-26 12:23 | DI.RAD_ITS ---
Exam(s) XR PAIN CLINIC LUMBAR SP 2V EXAM: XR PAIN CLINIC LUMBAR SP 2V CLINICAL HISTORY: Dx: Lumbar Spondylosis. TECHNIQUE: 2D and realtime digital imaging was performed. CONTRAST MATERIAL: Oral barium Oral water soluble contrast was administered. COMPARISON: No exams were available for comparison FINDINGS: Fluoroscopy was provided during lumbar radiofrequency ablation procedure. Submitted reveal placement of multiple needles both sides lower lumbar spine.. See procedure report for details. IMPRESSION: RADIATION DOSE DELIVERED: saige Jackson=35.19 mGy
--- NOTE | 2021-06-26 12:35 | PDOC.PAIN_ITS ---
Pain Clinic Procedure Note Procedure Note Procedure Note: Bilateral Lumbar Radiofrequency with Coolief Machine PROCEDURE NOTE Date of Service: June 26, 2021 Patient: Liss Viera Provider: Henrik Bill MD Pre Operative Diagnosis: Lumbosacral Spondylosis without Myelopathy Post Operative Diagnosis: Same Pre procedure pain: VAS = 8/10 Post procedure pain; VAS= 2/10 PROCEDURE: Radiofrequency Ablation of medial branches - [RT L3, L4, L5-DR / LT L3, L4, L5- DR Liss Viera was brought into the fluoroscopy suite and positioned into the prone position on the fluoroscopy table and allowed to adjust to a position of comfort. A grounding pad was placed on the left thigh. The lumbar region was widely prepped with a chloraprep solution, allowed to air dry and draped in standard sterile surgical fashion. Local anesthesia was provided by 15mL of 1% lidocaine delivered with a 25g needle. A 17g 100mm radiofrequency introducer needle was placed to the planned anatomic targets guided with intermittent fluoroscopy with a perpendicular approach to terminally place at the junction of the superior articular process and the transverse process of the bilateral L3, L4, L5-DR, the base of the sacral ala on the bilateral for the L5 medial branch nerve. The stylets were removed and radiofrequency probes with a 4mm active tip were then inserted. Needle tip position of the probes was verified in the AP, oblique, and lateral views. At each site, the medial branch nerve was stimulated at 2 Hz to a maximum 1-2 volts determined to finalize safe needle and electrode placement. The patient was awake and responsive during this portion of the procedure. Each target was anesthetized with 1mL of 2% lidocaine for anesthesia for lesioning and then each target was lesioned at 80 degrees Celsius for 2 minutes and 30 seconds. Tissue impedences were noted to be between 250 and 500 Ohms. Electrodes and needles were then removed and bandages placed over the needle placement sites, the patient then returned to the supine position on a stretcher and transported to the recovery room without hemodynamic, neurologic, or allergic reactions. Fluoroscopic images were printed for hard copy recording and digitally archived. POST PROCEDURE EVALUATION: IMPRESSION: 1. Summary of procedure. IV anxiolysis given during today's procedure: 1mg of IV versed and 25mcg of Fentanyl 2. The patient will be contacted in 1-3 weeks 3. Estimated Blood Loss: <5 mls 4. Fluoroscopy time: Documented in the EMR. Follow up plans and appointments were discussed with the Liss . Post procedure instruction was given as documented in nursing documentation and having met discharge criteria, Liss was discharged from the [facility]. COMMENTS: No apparent complications. Post-procedure pain: VAS= 2/10. F/U with our office as needed. I personally performed this entire procedure. Henrik Bill MD Attending Physician Pain Management
[2021-06-26] MEDS: Lidocaine 2% Pres-Free 5 ML VIAL IJ (12:38)
[2021-06-26] MEDS: Lidocaine 1% Pres-Free 30 ML VIAL IJ (12:38)
[2021-06-26] MEDS: Bupivacaine 0.5% Pres-Free 10 ML VIAL IJ (12:39)
[2021-06-26] MEDS: methylPREDNISolone ACETATE 40 MG/ML VIAL IJ (12:39)
== END 2021-06-26 10:53 | disposition home or self-care (01) ==
LOC: PC 10:53
PROVIDERS: PCP Nurse Practitioner; Visit Provider Internal Medicine
DX: M47.817 Spondylosis without myelopathy or radiculopathy, lumbosacral region (principal)
CPT/HCPCS: 64635; 64636; 72100; J1030; J2250; J3010

== ENCOUNTER → 2021-07-12 13:58 | Outpatient (BNVA) | payer MEDICARE, SELFPAY | PROVIDERS: PCP Nurse Practitioner; Referring Provider Nurse Practitioner; Visit Provider Nurse Practitioner Gerontology | DX: R39.15 Urgency of urination (principal) | CPT/HCPCS: 99213 ==

== ENCOUNTER 2021-10-31 01:45 | Outpatient (CLI) | payer MEDICARE, SELFPAY ==
[2021-10-31 13:24] VITALS: BP 126/85; PULSE 55; RESP 18; TEMP 36.6; O2SAT 97
--- NOTE | 2021-10-31 13:45 | DI.US_ITS ---
Exam(s) US PAIN CLINIC NEEDLE GUIDANCE EXAM: RT WRIST PAIN, M25.531 COMPARISON: No exams were available for comparison TECHNIQUE: Ultrasound performed using standard protocol. FINDINGS: Sonography was provided for Dr. Douglas during the performance of a right wrist injection. Please refe r to the procedure report for complete details. DATA REPOSITORY:
--- NOTE | 2021-10-31 14:06 | PDOC.PAIN_ITS ---
Pain Clinic Procedure Note Procedure Note Procedure Note: ULTRASOUND GUIDED RIGHT WRIST JOINT INJECTIONS Pre-Procedural Evaluation: Liss Viera has been referred to the [facility] Management [facility] for an Ultrasound Guided right injection for a chief complaint of right wrist pain. Pre-procedure Pain Score: 6/10 Patient was interviewed and the medical record reviewed. There were no medical, pharmacologic, radiographic, or other structural contraindications to preforming an ultrasound guided injection. Risks and expected side effects as well as potential benefits of the procedure were reviewed. The patient consent form was signed and witnessed. Standard time-out procedure was performed. The use of direct ultrasound visualization of the needle (rather than a non- guided injection) was required to increase patient safety by excluding inadvertent intramuscular, intratendinous, or intraneural needle placement and minimizing bleeding by avoiding osteochondral or vascular injury from the needle. Additionally, the increased accuracy of placement may increase clinical effectiveness and will allow higher diagnostic specificity when evaluating effectiveness of this injection. Procedure Description: The patient was placed in the prone position with her hands above her head and automated blood pressure cuff and pulse oximeter applied for monitoring during the procedure and recorded in the medical record. Pre-injection ultrasound scanning of the area of interest was performed using linear transducer, identifying relevant anatomy, landmarks, and neurovascular structures allowing for optimal needle path. The site was then prepared in the usual sterile fashion, using thorough Chlorhexadine preparation of the skin and sterile draping. The same ultrasound transducer was then passed into the sterile field using sterile probe cover and sterile ultrasound gel. The injection target was again visualized. Skin and subcutaneous tissues were anesthetized with 2 mL of 1% Lidocaine. A 25 guage 1.5 needle needle was placed under live ultrasound guidance, using an in- plane approach, to the target area. After visualization of the needle tip at the target area, 40 mg of Depomedrol was injected and this was flushed with 2 cc of 2% Lidocaine was delivered after negative aspiration for blood. The needle was removed without difficulty. Ultrasound images were captured and stored for documentation purposes. Post-procedure Pain Score:2/10 Vital signs were stable throughout the procedure and were as recorded in the docflowsheet by the nursing staff. Follow up plans and appointments were discussed with the patient.Post procedure instruction was given as documented in nursing documentation and having met discharge criteria, they were discharged from the [facility] Management [facility]. COMMENTS: She can have this procedure completed up to 3 times per 12 months. Efren Veradale, DO, MPH Pain Management
[2021-10-31] MEDS: methylPREDNISolone ACETATE 40 MG/ML VIAL IJ (14:11)
[2021-10-31] MEDS: Lidocaine 2% Pres-Free 5 ML VIAL IJ (14:11)
[2021-10-31 14:12] VITALS: PULSE 50; RESP 18; O2SAT 97
== END 2021-10-31 02:05 ==
PROVIDERS: PCP Nurse Practitioner; Visit Provider Preventive Medicine Occupational Medicine
DX: M25.531 Pain in right wrist (principal)
CPT/HCPCS: 20606; 76942; J1030

== ENCOUNTER 2022-01-02 01:48 | Outpatient (CLI) | payer MEDICARE, SELFPAY ==
[2022-01-02 13:51] LABS: Calculated LDL 68 mg/dL (<100); Cholesterol 149 mg/dL (<200); HDL Cholesterol 60 mg/dL (40-60); TSH (W/Ref FT4) 1.53 uIU/mL (0.36-3.74); Triglyceride 109 mg/dL (<150)
== END 2022-01-02 01:49 | disposition home or self-care (01) ==
LOC: LBO 01:49
PROVIDERS: PCP Nurse Practitioner; Visit Provider Nurse Practitioner
DX: Z13.6 Encounter for screening for cardiovascular disorders (principal); E03.9 Hypothyroidism, unspecified
CPT/HCPCS: 27096; 36415; 72200; 80061; 84443; J1040; Q9967

== ENCOUNTER 2022-01-02 11:08 | Outpatient (CLI) | payer MEDICARE, SELFPAY ==
[2022-01-02 11:29] VITALS: BP 110/58; PULSE 54; RESP 18; TEMP 36.6; O2SAT 96
[2022-01-02] MEDS: Omnipaque 240 MG/ML 50 ML BTL IJ (12:02)
[2022-01-02] MEDS: methylPREDNISolone ACETATE 80 MG/ML VIAL IJ (12:02)
[2022-01-02 12:03] VITALS: BP 129/69; PULSE 55; RESP 18; O2SAT 97
--- NOTE | 2022-01-02 12:12 | DI.RAD_ITS ---
Exam(s) XR PAIN CLINIC SACRIOILIAC 2V EXAM: XR PAIN CLINIC SACRIOILIAC 2V CLINICAL HISTORY: Dx: Sacroiliac Joint Dysfunction. TECHNIQUE: Fluoroscopy was provided for the referring physician for guidance with performing injecti on procedure. COMPARISON: No exams were available for comparison FINDINGS: Please see procedure note for details. Fluoro time: 12.6 seconds RADIATION DOSE DELIVERED: Ka,r= 3.7 mGy
--- NOTE | 2022-01-02 12:42 | PDOC.PAIN_ITS ---
Pain Clinic Procedure Note Procedure Note Procedure Note: INTRA-ARTICULAR SI JOINT INJECTION Liss Viera has been referred to the [facility] Management [facility] for intra-articular SI joint injection. COMMENTS: The patient was previously evaluated in our clinic. Pre-procedure pain VAS = 6/10. DX: Sacroiliac joint disfunction Patient was interviewed and the medical record reviewed. There were no medical, pharmacologic, radiographic or other structural contraindications to attempting fluoroscopically guided intra-articular SI joint injection. Risks and expected side effects as well as potential benefit of the procedure were reviewed and voiced concerns addressed. The printed consent form was signed and witnessed. Standard time-out procedure was performed. Patient was placed in the prone position on the fluoroscopy table and automated blood pressure cuff and pulse oximeter applied. The skin entry point for approaching left SI joints was identified under the most advantageous fluoroscopic view and marked. Following thorough Chlorhexadine preparation of the skin and draping and 1% lidocaine infiltration of the skin entry point and subcutaneous tissues, a 22 gauge spinal needle was placed under fluoroscopic guidance into the left SI joint was identified under the most advantageous fluoroscopic view and marked. Intra-articular placement was confirmed by a clear arthrogram resulting from the injection of 0.25ml Omnipaque 240, 1ml 1% lidocai ne, and 40mg Depomedrol were injected intra-articularily with an initial reproduction of a significant component of the usual pain. Vital signs were stable throughout the procedure and were as recorded in the docflowsheet by the nursing staff. If given, dosages of intravenous drugs for anxiolysis and analgesia were documented in MAR. Follow up plans and appointments were discussed with the patient. Post procedure instruction was given as documented in nursing documentation and having met discharge criteria, and was discharged from the Pain Management Center. COMMENTS: Post-procedure pain VAS = 0/10. Efren Douglas DO, MPH [facility]-Pain Management [facility] for Pain Management CC: Reva Hernandez, PhD STRAIGHTENING MACHINE OPERATOR
== END 2022-01-02 11:09 | disposition home or self-care (01) ==
LOC: PC 11:08
PROVIDERS: PCP Nurse Practitioner; Visit Provider Preventive Medicine Occupational Medicine
DX: M53.3 Sacrococcygeal disorders, not elsewhere classified (principal)
CPT/HCPCS: 27096; 72200; J1040; Q9967

== ENCOUNTER 2022-01-04 02:27 | Outpatient (CLI) | payer MEDICARE, SELFPAY ==
--- NOTE | 2022-01-04 13:30 | DI.CT_ITS ---
Exam(s) CT SINUS WO EXAM: CT SINUS WO CLINICAL HISTORY: FACIAL PRESSURE R44.8 FRONTAL SINUSITIS J32.1, HX MIGRAINE Z86.69. TECHNIQUE: Imaging Protocol: Axial computed tomography images with coronal and sagittal reformatted images were created and reviewed. No IV Contrast COMPARISON: No exams were available for comparison FINDINGS: MAXILLARY SINUSES: No significant mucosal thickening nor fluid levels. There is no evidence of bone dehiscence. OSTIOMEATAL UNITS: Patent bilaterally ETHMOIDAL AIR CELLS: Well aerated. No mucosal thickening nor fluid levels. SPHENOID SINUSES: Well aerated. No mucosal thickening nor fluid levels. FRONTAL SINUSES: Well aerated. No mucosal thickening nor fluid levels. NASAL SEPTUM AND TURBINATES:Nasal septum is deviated towards the left side and there is left-sided na luis felipe septal spur which is not occlusive. No evidence of significant gideon bullosa. IMPRESSION: 1. No significant mucosal thickening nor fluid levels within the paranasal sinuses. 2. Ostiomeatal units are patent bilaterally. Incidentally noted on the lower most images of this study is a bone density posteriorly at C1-2 level which is not completely included in the field of view of this sinus study but is an abnormal finding . This is behind the C1 arch. RADIATION DOSE DELIVERED: 117.01mGy.cm Total DLP DATA REPOSITORY: All CT scans at this facility are submitted to the National Radiology Data Registry (NRDR) Dose Index Registry (DIR) with the [employer] (ACR). RADIATION OPTIMIZATION: All CT scans at this facility use at least one of these dose optimization te chniques: automated exposure control; mA and/or kV adjustment per patient size (includes targeted exa ms where dose is matched to clinical indication); or iterative reconstruction.
== END 2022-01-04 02:47 ==
PROVIDERS: PCP Nurse Practitioner; Visit Provider Physician Assistant
DX: R44.8 Other symptoms and signs involving general sensations and perceptions (principal); J32.1 Chronic frontal sinusitis; Z86.69 Personal history of other diseases of the nervous system and sense organs; J34.2 Deviated nasal septum; J34.89 Other specified disorders of nose and nasal sinuses
CPT/HCPCS: 70486

== ENCOUNTER → 2022-01-10 14:29 | Outpatient (BNVA) | payer MEDICARE, SELFPAY | PROVIDERS: PCP Nurse Practitioner; Visit Provider Nurse Practitioner Gerontology | DX: R39.15 Urgency of urination (principal) | CPT/HCPCS: 99214 ==

== ENCOUNTER 2022-01-18 02:41 | Outpatient (CLI) | payer MEDICARE, SELFPAY ==
--- NOTE | 2022-01-18 07:45 | DI.DEXA_ITS ---
Exam(s) XR DEXA BONE DENSITY W/WO EMILIANO EXAM: XR DEXA BONE DENSITY W/WO EMILIANO CLINICAL HISTORY: screening for osteoporosis in postmenopausal woman,z78.0 TECHNIQUE: Routine DEXA evaluation of the lumbar spine, hip, or forearm. COMPARISON: No exams were available for comparison FINDINGS: Performed on a Hologic unit. Lateral image: No compression fracture evident. Lumbar Spine total T-score: 1.6 Hip total T-score:0.6 Independent reading at the level of the femoral neck yields at T-score of -0.9. Forearm total T-score: -0.3 IMPRESSION: Bone mineral density measures in the normal range. Fracture risk is low. Note: Any spine fracture indicates 5x risk for subsequent spine fracture and 2x risk for subsequent h ip fracture. World Health Organization criteria for BMD interpretation classify patients: Normal...... T- Score at or above -1.0 Osteopenic... T- Score between -1.0 and -2.5 Osteoporosis... T-Score at or below -2.5
--- NOTE | 2022-01-18 07:45 | DI.MAMMO_ITS ---
Exam(s) MAMMO SCREENING EXAM: MAMMO SCREENING CLINICAL HISTORY: screening,z12.39. TECHNIQUE: Bilateral full field digital CC and MLO mammographic images were obtained with 3D tomosyn thesis and utilizing computer aided detection (CAD). COMPARISON: Prior mammograms were reviewed, the most recent being October 2020. FINDINGS: There are no CAD designations. There are no new radiographic findings in the immediate vicinity of the biopsy marker clip located in the medial aspect of the right breast. There are no new spiculated masses nor malignant appearing microcalcification groups. Small nodular density laterally in the left breast is unchanged. There is no significant architectural distortion nor skin thickening-retraction. IMPRESSION: Stable benign findings. No radiographic evidence of malignancy. BI-RADS Category 2 - Benign Findings Breast Density - Category B - Scattered areas of fibroglandular density Breast density Category C or D implies that the patient has dense breast tissue. Dense breast tissue can make it harder to find cancer on a mammogram. Dense breast tissue is also associated with an incr eased risk of breast cancer. This information about the result of the mammogram report was provided to the patient to raise their awareness. Use this report when you speak with the patient about their risks for breast cancer, which includes their family history. At that time, you may recommend additional screening tests (Ultrasoun d or MRI) as these tests may add significant information. A negative radiographic report should not delay biopsy if a dominant or clinically suspicious mass is present. Up to ten percent of cancers are not identified on mammography. A negative report may reinforce clinical impression. Adenosis and dense breasts may obscure an underlying neoplasm. False positive reports average 6 to 10%. Patient will receive a letter notifying them of these results.
== END 2022-01-18 03:01 ==
PROVIDERS: PCP Nurse Practitioner; Visit Provider Nurse Practitioner
DX: Z78.0 Asymptomatic menopausal state (principal); Z12.31 Encounter for screening mammogram for malignant neoplasm of breast; Z13.820 Encounter for screening for osteoporosis; R92.8 Other abnormal and inconclusive findings on diagnostic imaging of breast
CPT/HCPCS: 77063; 77067; 77080

== ENCOUNTER 2022-04-10 10:31 | Outpatient (CLI) | payer MEDICARE, SELFPAY ==
--- NOTE | 2022-04-10 06:00 | DI.RAD_ITS ---
Exam(s) XR PAIN CLINIC SACRIOILIAC 2V EXAM: XR PAIN CLINIC SACRIOILIAC 2V CLINICAL HISTORY: DX: SI Joint Dysfunction TECHNIQUE: 2D and realtime digital imaging was performed. COMPARISON: No exams were available for comparison FINDINGS: C-arm fluoroscopy was utilized by Dr. Douglas during reported left SI joint injection. Hard copy shows injection at the left SI joint. IMPRESSION: RADIATION DOSE DELIVERED: Ka,r=7.17 mGy
[2022-04-10 10:39] VITALS: BP 141/76; PULSE 59; RESP 20; TEMP 36.6; O2SAT 96
[2022-04-10 11:14] VITALS: BP 125/93; PULSE 57; RESP 14; O2SAT 97
[2022-04-10] MEDS: Omnipaque 240 MG/ML 50 ML BTL IJ (11:21)
[2022-04-10] MEDS: methylPREDNISolone ACETATE 80 MG/ML VIAL IJ (11:21)
--- NOTE | 2022-04-10 14:24 | PDOC.PAIN ---
Pain Clinic Procedure Note Procedure Note Procedure Note: LEFT INTRA-ARTICULAR SI JOINT INJECTION Liss Viera has been referred to the Pain Management Center for intra-articular SI joint injection. COMMENTS: She last had this procedure on 01/02/22 with good, but short lived, relief. Her pre-procedure pain VAS was 7/10. Dx: Left sacroiliac joint dysfunction Patient was interviewed and the medical record reviewed. There were no medical, pharmacologic, radiographic or other structural contraindications to attempting fluoroscopically guided intra-articular SI joint injection. Risks and expected side effects as well as potential benefit of the procedure were reviewed and voiced concerns addressed. The printed consent form was signed and witnessed. Standard time-out procedure was performed. Patient was placed in the prone position on the fluoroscopy table and automated blood pressure cuff and pulse oximeter applied. The skin entry point for approaching left SI joint was identified under the most advantageous fluoroscopic view and marked. Following thorough Chlorhexadine preparation of the skin and draping and 1% lidocaine infiltration of the skin entry point and subcutaneous tissues, a 22 gauge spinal needle was placed under fluoroscopic guidance into left SI joint was identified under the most advantageous fluoroscopic view and marked. Intra-articular placement was confirmed by a clear arthrogram resulting from the injection of 0.25ml Omnipaque 240, 1ml 1% lidocaine, and 40mg Depomedrol were injected intra-articularily with an initial reproduction of a significant component of the usual pain. Vital signs were stable throughout the procedure and were as recorded in the docflowsheet by the nursing staff. If given, dosages of intravenous drugs for anxiolysis and analgesia were documented in MAR. Follow up plans and appointments were discussed with the patient. Post procedure instruction was given as documented in nursing documentation and having met discharge criteria, and was discharged from the Pain Management Center. COMMENTS: Post-procedure pain VAS was 0/10. Efren Douglas DO, MPH [facility]-Pain Management [facility]-Center for Pain Management CC: Reva Hernandez, PhD [employer]KE [employer]ER
== END 2022-04-10 10:32 | disposition home or self-care (01) ==
LOC: PC 10:32
PROVIDERS: PCP Nurse Practitioner; Visit Provider Preventive Medicine Occupational Medicine
DX: M53.3 Sacrococcygeal disorders, not elsewhere classified (principal); M54.50 Low back pain, unspecified
CPT/HCPCS: 27096; 72200; J1040; Q9967

== ENCOUNTER → 2022-04-11 14:00 | Outpatient (BNVA) | payer MEDICARE, SELFPAY | PROVIDERS: PCP Nurse Practitioner; Referring Provider Nurse Practitioner; Visit Provider Nurse Practitioner Gerontology | DX: R39.15 Urgency of urination (principal) | CPT/HCPCS: 51798; 99214 ==

== ENCOUNTER 2022-07-05 21:43 | Outpatient (REF) | payer MEDICARE, SELFPAY ==
[2022-07-07 10:20] LABS: COVID-19 RT-PCR UVMMC Result Negative (Negative)
== END 2022-07-05 21:44 | disposition home or self-care (01) ==
LOC: LBN 21:43
PROVIDERS: PCP Nurse Practitioner; Visit Provider Physician Assistant
DX: Z20.822 Contact with and (suspected) exposure to COVID-19 (principal); J02.9 Acute pharyngitis, unspecified; R53.83 Other fatigue; R19.7 Diarrhea, unspecified
CPT/HCPCS: U0003

== ENCOUNTER → 2022-10-10 14:33 | Outpatient (BNVA) | payer MEDICARE, SELFPAY | PROVIDERS: PCP Nurse Practitioner Family; Referring Provider Nurse Practitioner Family; Visit Provider Nurse Practitioner Gerontology | DX: R35.0 Frequency of micturition (principal); R39.15 Urgency of urination | CPT/HCPCS: 99213 ==

== ENCOUNTER 2022-10-17 01:41 | Outpatient (CLI) | payer MEDICARE, SELFPAY ==
[2022-10-17 10:02] LABS: ALT 35 U/L (14-59); AST 17 U/L (15-37); Alkaline Phosphatase 71 U/L (46-116); Anion Gap 6.5 mmol/L (3-11); BUN 21 mg/dL (7-18); Bilirubin, Total 0.4 mg/dL (0.2-1.0); CO2 33.5 mmol/L (21.0-32.0); Calcium 9.6 mg/dL (8.5-10.1); Chloride 102 mmol/L (98-107); Glucose 87 mg/dL (74-106); Potassium 4.2 mmol/L (3.5-5.1); Sodium 142 mmol/L (136-145); Total Protein 7.4 g/dL (6.4-8.2)
== END 2022-10-17 01:42 | disposition home or self-care (01) ==
LOC: LBO 01:41
PROVIDERS: PCP Nurse Practitioner Family; Visit Provider Nurse Practitioner Family
DX: E78.5 Hyperlipidemia, unspecified (principal); M79.7 Fibromyalgia; G47.62 Sleep related leg cramps; Z01.812 Encounter for preprocedural laboratory examination
CPT/HCPCS: 36415; 80053

== ENCOUNTER → 2022-10-25 00:37 | Outpatient (CLI) | payer MEDICARE, SELFPAY ==
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
== END ==
PROVIDERS: PCP Nurse Practitioner Family; Visit Provider Preventive Medicine Occupational Medicine
DX: M54.12 Radiculopathy, cervical region (principal); Z98.1 Arthrodesis status; M50.31 Other cervical disc degeneration, high cervical region; M25.78 Osteophyte, vertebrae; M48.02 Spinal stenosis, cervical region; M51.24 Other intervertebral disc displacement, thoracic region
CPT/HCPCS: 72141

== ENCOUNTER 2022-12-10 01:34 | Outpatient (CLI) | payer MEDICARE, SELFPAY ==
--- NOTE | 2022-12-10 | DI.MRI_ITS ---
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 TECHNIQUE: Multiplanar multisequence MRI of the Thoracic spine was performed. COMPARISON: None. FINDINGS: Bones: The vertebral body heights are well maintained. Alignment is satisfactory. Mild degenerative e ndplate signal changes are present throughout the thoracic spine. There are small endplate osteophyt es seen at multiple levels of the thoracic spine. Cord: The thoracic cord is normal size and signal intensity. No intrinsic cord lesion is present. Discs: There are small disc bulges at T2-3, T3-T4, T5-T6, and T8-T9. There is no significant central spinal canal and neural foraminal stenosis that results. Soft tissues: Normal. IMPRESSION: 1. Jpvr-pi-okirlgbb degenerative changes seen throughout the thoracic spine. Multilevel small disc b ulges are present. 2. No significant central spinal canal or neural foraminal stenosis is seen in the thoracic spine. DATA REPOSITORY:
== END 2022-12-10 01:54 ==
LOC: DI 01:35
PROVIDERS: PCP Family Medicine; Visit Provider Physician Assistant Surgical
DX: M51.24 Other intervertebral disc displacement, thoracic region (principal); M51.34 Other intervertebral disc degeneration, thoracic region
CPT/HCPCS: 72146

== ENCOUNTER → 2022-12-12 10:14 | Outpatient (BNVA) | payer MEDICARE, SELFPAY | PROVIDERS: PCP Family Medicine; Referring Provider Physician Assistant Surgical; Visit Provider Psychiatry & Neurology Neurology | DX: G56.02 Carpal tunnel syndrome, left upper limb (principal) | CPT/HCPCS: 95910; 99214 ==

== ENCOUNTER 2023-01-22 11:44 | Outpatient (CLI) | payer MEDICARE, SELFPAY ==
--- NOTE | 2023-01-22 | DI.MRI_ITS ---
Exam(s) MR LUMBAR SPINE WO EXAM: MR LUMBAR SPINE WO CLINICAL HISTORY: LOW BACK ACHE, M54.50. TECHNIQUE: Multiplanar multisequence MRI of the Lumbar spine was performed. COMPARISON: MR MR LUMBAR SPINE WO from 08/28/2020 CR XR DEXA BONE DENSITY W/WO EMILIANO from 01/18/2022 FINDINGS: Bones: The last intervertebral disc space is designated the L5/S1 level for the numbering purpose of this examination. The vertebral body heights are well maintained. Alignment is satisfactory. The si gnal characteristics are unremarkable. Cord: The conus tip ends at the L1 level. It is of normal size and signal intensity. T12-L1: No disc herniations or bulges are present. No central spinal canal or neural foraminal stenos is. L1-2: No disc herniations or bulges are present. No central spinal canal or neural foraminal stenosis . L2-3: No disc herniations or bulges are present. No central spinal canal or neural foraminal stenosis .There are degenerative changes of the facets. L3-4: No disc herniations or bulges are present. No central spinal canal or neural foraminal stenosis .There are degenerative changes of the facets. L4-5: There is no focal disc herniation. There are hypertrophic changes of the facets and ligamentum flavum. These all contribute to cause mild narrowing of the central spinal canal. Moderately sever e right and marked left neural foraminal stenosis is present. L5-S1: There are degenerative changes of the facets. No significant central spinal canal stenosis is seen. No focal disc herniation is present. There is no neural foraminal stenosis. Soft tissues: The visualized SI joints and sacrum are well maintained. The paraspinal soft tissues ar e unremarkable. IMPRESSION: Multilevel degenerative changes in the lumbar spine. The findings are most marked at L4-5 where ther e is moderate severe right and marked left neural foraminal stenosis in addition to mild central spin al canal narrowing. Please see the above discussion for complete details. DATA REPOSITORY:
== END 2023-01-22 12:04 ==
LOC: DI 11:44
PROVIDERS: PCP Family Medicine; Visit Provider Neurological Surgery
DX: M54.59 Other low back pain (principal); M47.817 Spondylosis without myelopathy or radiculopathy, lumbosacral region; M48.061 Spinal stenosis, lumbar region without neurogenic claudication
CPT/HCPCS: 72148

== ENCOUNTER 2023-02-06 02:33 | Outpatient (CLI) | payer MEDICARE, SELFPAY ==
[2023-02-06 16:07] LABS: ESR 4 mm/hr (0-30)
[2023-02-06 16:09] LABS: Abs Immature Grans 0.01 10^3/uL (0.0-0.06); Absolute Basophil Count 0.01 10^3/uL (0.0-0.2); Absolute Lymphocyte Count 1.75 10^3/uL (1.2-3.4); Absolute Monocyte Count 0.42 10^3/uL (0.1-0.8); Basophils % 0.2; HCT 41.3 % (36.0-46.0); HGB 13.8 g/dL (11.2-15.7); Immature Grans % 0.2; Lymphocytes % 35.8; MCH 31.5 pg (27.0-33.0); MCHC 33.4 % (32.0-36.0); MCV 94 fL (80-95); MPV 10.7 fL (8.0-11.0); Monocytes % 8.6; Neutrophils % 53.2; Platelet Count 191 10^3/uL (130-400); RBC 4.38 10^6/uL (3.93-5.22); RDW 13.3 % (11.7-14.6); RDW-SD 46.5 fL; WBC 4.89 10^3/uL (4.4-10.8)
[2023-02-06 16:43] LABS: ALT 23 U/L (14-59); AST 16 U/L (15-37); Albumin 4.1 g/dL (3.4-5.0); Alkaline Phosphatase 73 U/L (46-116); Anion Gap 6.5 mmol/L (3-11); BUN 14 mg/dL (7-18); Bilirubin, Total 0.3 mg/dL (0.2-1.0); CO2 33.5 mmol/L (21.0-32.0); CREATININE 1.1 mg/dL (0.55-1.02); Calcium 9.6 mg/dL (8.5-10.1); Chloride 102 mmol/L (98-107); Estimated GFR 56.46 (mL/min/1.73m2); Glucose 90 mg/dL (74-106); Potassium 3.9 mmol/L (3.5-5.1); Sodium 142 mmol/L (136-145); TSH (W/Ref FT4) 2.89 uIU/mL (0.36-3.74); Total Protein 7.5 g/dL (6.4-8.2); Uric Acid 4.4 mg/dL (2.6-6.0)
[2023-02-07 19:53] LABS: Rheumatoid Factor <8.6 IU/mL (<12.0)
[2023-02-09 15:19] LABS: HIV-1/2 Ag & Ab Screen Negative (Negative)
[2023-02-10 12:01] LABS: Hepatitis C Ab w Rflx HCV PCR Negative (Negative)
[2023-02-10 14:01] LABS: ANA Interpretation Negative (Negative)
== END 2023-02-06 02:34 | disposition home or self-care (01) ==
PROVIDERS: PCP Family Medicine; Visit Provider Family Medicine
DX: M79.7 Fibromyalgia (principal); E03.9 Hypothyroidism, unspecified; Z11.4 Encounter for screening for human immunodeficiency virus [HIV]; Z11.59 Encounter for screening for other viral diseases; F32.89 Other specified depressive episodes; E78.5 Hyperlipidemia, unspecified
CPT/HCPCS: 36415; 80053; 85652; 86803; 87389; 84443; 84550; 85025; 86038; 86431

== ENCOUNTER 2023-02-12 01:32 | Outpatient (CLI) | payer MEDICARE, SELFPAY ==
--- NOTE | 2023-02-12 | DI.RAD_ITS ---
Exam(s) XR LUMBAR SPINE FLEX/EXT ONLY EXAM: XR LUMBAR SPINE FLEX/EXT ONLY CLINICAL HISTORY: LOW BACK PAIN, M54.50,ACHE. TECHNIQUE: 2D digital imaging was performed. Flexion and extension lateral views were performed. COMPARISON: CR XR DEXA BONE DENSITY W/WO EMILIANO from 01/18/2022 MR MR LUMBAR SPINE WO from 01/22/2023 FINDINGS: Vertebral bodies are maintained in height. Endplate osteophytes are noted greater in the upper lumba r levels. Narrowing of the T12-L1 and L1-2 disc spaces. Narrowing of the L4-5 disc space. Prominen t facet joint degenerative changes are noted at L4-5 and L5-S1. There is mild spondylolisthesis at t hese levels. There is not no change with flexion or extension. IMPRESSION: Facet degenerative changes causing mild spondylo listhesis at L4-5 and L5-S1. No evidence of spondyl olysis. No subluxation. DATA REPOSITORY: RADIATION DOSE DELIVERED:
== END 2023-02-12 01:52 ==
LOC: DI 01:32
PROVIDERS: PCP Family Medicine; Visit Provider Physician Assistant Medical
DX: M54.59 Other low back pain (principal); M43.17 Spondylolisthesis, lumbosacral region; M47.817 Spondylosis without myelopathy or radiculopathy, lumbosacral region; M51.36 Other intervertebral disc degeneration, lumbar region
CPT/HCPCS: 72120

== ENCOUNTER 2023-03-06 10:39 | Outpatient (CLI) | payer MEDICARE, SELFPAY ==
[2023-03-06 10:45] VITALS: BP 134/75; PULSE 60; RESP 20; TEMP 36.6; O2SAT 100
--- NOTE | 2023-03-06 11:25 | DI.RAD_ITS ---
Exam(s) XR PAIN CLINIC CERVICAL SP 2V EXAM: XR PAIN CLINIC CERVICAL SP 2V CLINICAL HISTORY: DX: Cervical Radiculopathy TECHNIQUE: 2D and realtime digital imaging was performed. CONTRAST MATERIAL: Refer to procedure report. COMPARISON: No exams were available for comparison FINDINGS: Fluoroscopy was provided for Dr. Douglas during the performance of a cervical epidural steroid injectio n. Please refer to the procedure report for complete details. Ka,r=8.7 mGy IMPRESSION:
[2023-03-06] MEDS: Omnipaque 240 MG/ML 50 ML BTL IJ (11:29)
[2023-03-06] MEDS: Dexamethasone Sod. Phos./Pres-Free 10 MG/ML VIAL IJ (11:29)
[2023-03-06 11:31] VITALS: BP 136/85; PULSE 56; RESP 12; O2SAT 95
--- NOTE | 2023-03-06 12:28 | PDOC.PAIN_ITS ---
Date of service: 03/06/23 Time of Service: 11:30 Pain Managment Procedure Note Procedure Note Procedure Note: Cervical Epidural Steroid Injection Liss Viera has been referred to the [facility] for cervical epidural steroid injection. COMMENTS:She was previously seen in the office. She does have a C4-C5 fusion. Dx: Cervical radiculopathy Pre-procedure pain VAS was 6/10 Ms Viera was interviewed and the medical record reviewed. There were no medical, pharmacologic, radiographic or other structural contraindications to attempting fluoroscopically guided epidural steroid injection. Risks and expected side e ffects as well as potential benefit of the procedure were reviewed with , and voiced concerns addressed. The printed consent form was signed and witnessed. Standard time-out procedure was performed. The patient was placed in the prone position on the fluoroscopy table and automated blood pressure cuff and pulse oximeter applied. The skin entry point for entering the epidural space by a midline C7-T1 interlaminar approach was identified under fluoroscopy and marked. Following thorough Chlorhexadine preparation of the skin and draping and 1% lidocaine infiltration of the skin entry point and subcutaneous tissues, an 18 gauge Tuohy needle was placed under fluoroscopic guidance and with loss of resistance technique into the C7-T1 epidural space. Upon needle placement and loss of resistance there were no paresthesiae or return of blood or CSF through the needle. 1 cc of Omnipaque 240 was injected with clear epidural spread in the A/P, lateral and oblique views. 15 mg of preservative free Dexomethasone was injected with no unusual discomfort expressed by Ms Viera. This was flushed with 1 cc of normal saline. Ms Viera 's vital signs were stable throughout the procedure and were as recorded in the docflowsheet by the nursing staff. Follow up plans and appointments were discussed with Ms. Viera. Post procedure instruction was given as documented in nursing documentation and having met discharge criteria, Ms Viera was discharged from the [facility]. COMMENTS: Post-procedure pain VAS was 0/10. If this improves her pain and/or function by 50% for at least 3 months, this procedure can be completed. Efren Douglas DO, MPH [facility]-Pain Management [facility] CC: Korina Roman
== END 2023-03-06 10:40 | disposition home or self-care (01) ==
LOC: PC 10:39
PROVIDERS: PCP Family Medicine; Visit Provider Preventive Medicine Occupational Medicine
DX: M54.12 Radiculopathy, cervical region (principal); M54.2 Cervicalgia
CPT/HCPCS: 62321; 72040; Q9967

== ENCOUNTER → 2023-04-01 14:59 | Outpatient (BNVA) | payer MEDICARE, SELFPAY | PROVIDERS: PCP Family Medicine; Visit Provider Nurse Practitioner Gerontology | DX: R39.15 Urgency of urination (principal) | CPT/HCPCS: 51798; 99214 ==

== ENCOUNTER 2023-04-25 01:48 | Outpatient (CLI) | payer MEDICARE, SELFPAY ==
[2023-04-25 12:40] LABS: Hemoglobin A1C 5.4 % (<5.7)
== END 2023-04-25 01:49 | disposition home or self-care (01) ==
LOC: LOS 01:48
PROVIDERS: PCP Family Medicine; Visit Provider Family Medicine
DX: G89.29 Other chronic pain (principal); E66.01 Morbid (severe) obesity due to excess calories; Z68.41 Body mass index [BMI] 40.0-44.9, adult; Z79.899 Other long term (current) drug therapy; F32.89 Other specified depressive episodes
CPT/HCPCS: 36415; 83036

== ENCOUNTER → 2023-06-12 10:23 | Outpatient (BNVA) | payer MEDICARE, SELFPAY | PROVIDERS: PCP Family Medicine; Referring Provider Family Medicine; Visit Provider Student in an Organized Health Care Education/Training Program | DX: G56.02 Carpal tunnel syndrome, left upper limb (principal) | CPT/HCPCS: 99213 ==

== ENCOUNTER 2023-07-02 10:14 | Day surgery (SDC) | payer MEDICARE, SELFPAY ==
[2023-07-02 10:55] VITALS: BP 123/77; PULSE 64; RESP 16; TEMP 36.5; O2SAT 98
--- NOTE | 2023-07-02 11:22 | W.ANESPRE ---
General Info Date of Service Date Performed: 07/02/23 Height: 5 ft 3 in Weight: 99.7 kg Body Mass Index (BMI): 38.9 Surgical Procedure: Operation Date: 07/02/23 13:40 Proposed Procedure Side Surgeon p Wrist ECTR Left Bird Gunn MD Meds Allergies and Home Medications Allergies Allergy/AdvReac Type Severity Reaction Status Date / Time hydrocodone Allergy Intermediate SOB Verified 07/02/23 11:05 mold Allergy Verified 07/02/23 11:05 norfloxacin Allergy Skin Rash Verified 07/02/23 11:05 pollen extracts Allergy Verified 07/02/23 11:05 duloxetine AdvReac Intermediate Interfers Verified 07/02/23 11:05 with thoughts dust Allergy Uncoded 07/02/23 11:05 Home Medication Medication Instructions Recorded multivitamin 1 ea PO DAILY 07/29/13 lactobacillus combination no.8 3 3,000 mmu cells PO DAILY 11/17/20 billion cell capsule (Adult Probiotic) lidocaine 4 % topical patch 1 patch topical DAILY PRN pain #30 08/30/22 ea fluticasone propionate 50 2 spray intranasal DAILY PRN 12/12/22 mcg/actuation nasal spray,suspension (Allergy Relief (fluticasone)) imipramine HCl 25 mg tablet 25 mg PO HS #90 tabs 01/08/23 acetaminophen 650 mg 500 mg PO QID 02/05/23 tablet,extended release (Pain Relief (acetaminophen)) escitalopram oxalate 20 mg tablet 20 mg PO DAILY #90 tab-caps 02/05/23 ibuprofen 200 mg capsule 400 mg PO QID 02/05/23 mecobalamin (vitamin B12) 1,000 1,000 mcg PO DAILY 02/05/23 mcg chewable tablet (B12 Active) omega 3-mgs-qto-fish oil 60 mg-90 1 cap PO DAILY 04/01/23 mg-500 mg capsule (Fish Oil) mirabegron 50 mg tablet,extended 50 mg PO DAILY #90 tabs 04/02/23 release 24 hr (Myrbetriq) tizanidine 4 mg tablet 1 mg PO QHS 04/08/23 pregabalin 150 mg capsule 150 mg PO BID #60 caps 05/05/23 pregabalin 75 mg capsule 75 mg PO QHS #30 caps 05/05/23 tramadol 50 mg tablet See Rx Instructions PO BID PRN 05/27/23 pain #20 tabs terbinafine HCl 1 % topical cream 1 applic topical BID #30 grams 06/18/23 fluconazole 150 mg tablet 150 mg PO Q3D 07/02/23 (Diflucan) Current Visit Medications: Current Medications Generic Name Dose Route Start Last Admin Trade Name Bensonq PRN Reason Stop Dose Admin Ringer's Solution 1,000 mls @ 80 mls/hr 07/02/23 06:00 IV 07/02/23 23:59 INFUSION ABDIAZIZ Cefazolin Sodium/Dextrose 2 gm in 50 mls @ 100 mls/hr 07/02/23 06:00 Ancef Duplex IVPB 07/02/23 23:59 PREOP ABDIAZIZ IV Miscellaneous Supplies 1 each 07/02/23 06:00 Iv Access IV 07/02/23 23:59 DIRECTED ABDIAZIZ Sodium Chloride 0 ml 07/02/23 06:00 Normal Saline Flush 10 Ml Syr IV 07/02/23 23:59 PRN PRN Sodium Chloride 0 ml 07/02/23 06:00 Normal Saline 10 Ml Vial IJ 07/02/23 23:59 DIRECTED PRN Sterile Water 0 ml 07/02/23 06:00 Water,Injection,Sterile 10 Ml Vial IJ 07/02/23 23:59 DIRECTED PRN PFSH Active Problems Active Problems: Problem Status Onset Code Pain disorder associated with psychological and physical factors F45.42 Psychological and behavioral factors associated with disorders or diseases classified elsewhere F54 Psychological factors affecting medical condition F54 Urinary, incontinence, stress female 06/23/13 N39.3 Hypothyroidism 03/21/15 E03.9 Neck pain M54.2 Primary fibromyalgia syndrome M79.7 Spinal stenosis in cervical region 03/25/13 M48.02 Depressive disorder F32.9 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 KAITLIN on CPAP G47.33, Z99.89 Hyperlipidemia E78.5 Right wrist pain M25.531 Sacroiliac joint dysfunction of left side M53.3 Chronic frontal sinusitis J32.1 Irritable bowel syndrome with mixed bowel habits K58.2 Sleep related leg cramps G47.62 Cervical radiculitis M54.12 Carpal tunnel syndrome of left wrist G56.02 Chronic pain G89.29 Morbid obesity with BMI of 40.0-44.9, adult E66.01, Z68.41 Medical History Medical History Arthritis Cervical vertebral fusion Claustrophobia (01/16/17) COPD (chronic obstructive pulmonary disease) Diverticula of colon diverticula carry all the way over to the right colon. Colon has poor tone and extremely tortuous. History of alcoholism History of IBS History of neck pain History of tobacco use Hx of head injury Hx of migraines Hypercholesterolemia Mass of soft tissue of elbow removed 09/2020 Synovial cyst Tenosynovitis, de Quervain Tinnitus, bilateral (05/07/16) Surgical History Surgical History cervical fusion C 4-5 (03/10/17) H/O arthroscopy of right knee H/O tubal ligation History of bladder repair surgery History of cholecystectomy History of colonoscopy (~12/01/20) [place]x of [place] [facility] [place] L4-L5 FACET CYST. Cervical Laminectomy 2010 Status post laparoscopic hysterectomy Tobacco Smoking/Tobacco Use Status: Former Tobacco Use Passive smoking exposure: Yes Second hand exposure: Yes Alcohol Alcohol Intake: current Alcohol intake frequency: a few times a week Alcohol type: hard liquor Details: ABOUT 2 DRINKS PER DAY Substance Use Substance use: Occasionally Substance use type: marijuana Details: Topical THC daily, last time smoke 07/01/232099 Vital Signs and Lab Results Vital Signs Most Recent Vital Signs in EMR: Most Recent Vital Signs Temp Pulse Resp BP Pulse Ox 36.5 C 64 16 123/77 98 07/02/23 10:55 07/02/23 10:55 07/02/23 10:55 07/02/23 10:55 07/02/23 10:55 Lab Results Blood Type / Crossmatch: No Data to Display Complete Blood Count: No Data to Display Complete Metabolic Panel: No Data to Display Liver Function Panel: No Data to Display Coagulation Panel: No Data to Display Cardiac Panel: No Data to Display Arterial Blood Gas: No Data to Display Venous Blood Gas: No Data to Display Pancreas Panel: No Data to Display Thyroid Panel: No Data to Display Infectious Disease: No Data to Display Blood Cultures: No Data to Display Toxicology Panel: No Data to Display Anesthesia Assessment and Plan Anesthesia History Personal History: No History of Anesthesia Complications Family History: No Family History of Anesthesia Complications Exercise Tolerance Exercise Tolerance: Metabolic Equivalents>4 Pertinent Negatives Pertinent Negatives: No Symptoms of GERD, No Major Cardiovascular Symptoms or Complaints, No Major Pulmonary Symptoms or Complaints and No History of CVA/TIA Cardiac & Pulmonary Exam Cardiac Exam: Normal S1/S2 Heart Sounds Pulmonary Exam: Clear Bilateral Breath Sounds Implantable Cardiac Device Does patient have a Pacemaker or an ICD?: No Airway Exam Known Difficult Airway: No Mallampati Class: 2 Mouth Opening: Normal (> 3cm) Thyromental Distance: Greater than 3 cm Neck Range of Motion: Full ROM and History of Cervical Fusion (Reports FCROM but uncomfortable ) Neck Circumference: Normal Teeth Condition: Normal Dentition and Removable Dentures/Plates Upper ASA Classification ASA Score: ASA 2 Emergency Case?: No NPO Status NPO Status: NPO Clears >2 hours, Solids >8 hours Anesthesia Plan Resuscitation Status: Full Code Anesthesia Technique: General Anesthesia Airway Planned: Natural Airway Monitors Used: Standard Monitors
[2023-07-02] MEDS: Lactated Ringers 1,000 ML 80 ML IV (11:30)
[2023-07-02 11:38] VITALS: BMI 38.9
--- NOTE | 2023-07-02 11:46 | W.PM.DSUDISC ---
Date of service: 07/02/23 Time of Service: 11:46 Discharge Plan Disposition Patient Disposition: Home Condition: Good Discharge Details Reason For Visit: L ECTR Attending Provider: Bird Gunn Primary Care Provider: Korina Roman Home Meds and New Rx's Prescriptions: New acetaminophen 500 mg tablet 1,000 mg PO TID Qty: 90 0RF ibuprofen 600 mg tablet 600 mg PO TID PRN (Reason: pain) Qty: 90 0RF Continued fluticasone propionate [Allergy Relief (fluticasone)] 50 mcg/actuation spray,suspension 2 spray intranasal DAILY PRN Rx Instructions: administer into each nostril imipramine HCl 25 mg tablet 25 mg PO HS Qty: 90 4RF escitalopram oxalate 20 mg tablet 20 mg PO DAILY Qty: 90 4RF Adult Probiotic 3 billion cell capsule 3,000 mmu cells PO DAILY Rx Instructions: administer with a meal lidocaine 4 % adhesive patch,medicated 1 patch topical DAILY PRN (Reason: pain) Qty: 30 1RF Rx Instructions: Apply patch to most painful area, may leave on for up to 12 hrs tizanidine 4 mg tablet 1 mg PO QHS omega 7-pjo-pjt-fish oil [Fish Oil] 60-90-500 mg capsule 1 cap PO DAILY Myrbetriq 50 mg tablet extended release 24 hr 50 mg PO DAILY Qty: 90 3RF multivitamin 1 EACH tablet 1 ea PO DAILY pregabalin 75 mg capsule 75 mg PO QHS Qty: 30 3RF Rx Instructions: Take with the 150mg dose at bedtime. pregabalin 150 mg capsule 150 mg PO BID Qty: 60 3RF Rx Instructions: no abrupt cessation tramadol 50 mg tablet See Rx Instructions PO BID PRN (Reason: pain) Qty: 20 0RF Rx Instructions: 25-50mg orally twice a day PRN; terbinafine HCl 1 % cream 1 applic topical BID Qty: 30 3RF mecobalamin (vitamin B12) [B12 Active] 1,000 mcg tablet,chewable 1,000 mcg PO DAILY fluconazole [Diflucan] 150 mg tablet 150 mg PO Q3D Discontinued ibuprofen 200 mg capsule 400 mg PO QID acetaminophen [Pain Relief (acetaminophen)] 650 mg tablet extended release 500 mg PO QID Discharge Instructions Stand Alone Forms: Velia Alvarez Tunnel Release Referrals: Bird Gunn MD [ [facility] STAFF PHYSICIAN] - Activity:: Activity as Tolerated Remove Dressings/Wound Care:: 48 hours Shower/Bathe:: 48 hours Diet:: As Tolerated Discharge Orders Discharge Orders: Discharge Order (Routine); Ordered 07/02/23 Ordered By: Kelvin Dumont DS: Diagnosis Discharge Diagnosis (1) Carpal tunnel syndrome of left wrist: Status: Acute
--- NOTE | 2023-07-02 13:07 | W.PREOPHP ---
Assessment and Plan Assessment and plan (1) Carpal tunnel syndrome of left wrist: Status: Acute Assessment and plan: Liss is a 62-year-old female who has ongoing pain and numbness of the left upper extremity. A portion of her symptoms could be related to carpal tunnel and therefore she is here today for carpal tunnel release. I discussed the technical details of carpal tunnel release and that I perform an endoscopic release, but would make a larger, open, incision if necessary for visualization. I discussed the risks of the procedure to include, but not limited to, bleeding, infection, palmar pain, stiffness, damage to nerves, damage to vessels, damage to tendons, weakness, recurrence, continued symptoms, scarring or inflammation around the nerve, and incomplete release. Given these risks, Liss desires to proceed. History of Present Illness History of Present Illness Chief Complaint: Chronic pain and numbness Narrative: Liss is a 62-year-old female with multiple medical issues and a complex medical history. She has had some ongoing pain and numbness about the left upper extremity with history of spine surgery and injury. Please see the previous office note for complete detailed history. However, there is a consideration that a portion of her symptoms could be coming from carpal tunnel and therefore is here today for carpal tunnel release. She denies any acute changes to her health. No chest pain or shortness of breath. Review of Systems All systems reviewed & are unremarkable except as noted in HPI and below PFSH All Active Problems Pain disorder associated with psychological and physical factors (Acute) Psychological and behavioral factors associated with disorders or diseases classified elsewhere (Acute) Psychological factors affecting medical condition (Acute) Urinary, incontinence, stress female (Acute 06/23/13) Hypothyroidism (Chronic 03/21/15) Neck pain (Acute) left shoulder and neck pain; has seen a chiropractor, received manipulatin, massage Primary fibromyalgia syndrome (Acute) she has generalized pain Spinal stenosis in cervical region (Acute 03/25/13) Depressive disorder (Chronic) Extensor intersection syndrome of right wrist (Acute) KAITLIN on CPAP (Chronic) Hyperlipidemia (Acute) Right wrist pain (Acute) Sacroiliac joint dysfunction of left side (Acute) Chronic frontal sinusitis (Acute) Irritable bowel syndrome with mixed bowel habits (Acute) Sleep related leg cramps (Acute) Cervical radiculitis (Acute) Carpal tunnel syndrome of left wrist (Acute) Chronic pain (Chronic) Morbid obesity with BMI of 40.0-44.9, adult (Acute) Medical History Arthritis Cervical vertebral fusion Claustrophobia (01/16/17) COPD (chronic obstructive pulmonary disease) Diverticula of colon diverticula carry all the way over to the right colon. Colon has poor tone and extremely tortuous. History of alcoholism History of IBS History of neck pain History of tobacco use Hx of head injury Hx of migraines Hypercholesterolemia Mass of soft tissue of elbow removed 09/2020 Synovial cyst Tenosynovitis, de Quervain Tinnitus, bilateral (05/07/16) Surgical History cervical fusion C 4-5 (03/10/17) H/O arthroscopy of right knee H/O tubal ligation History of bladder repair surgery History of cholecystectomy History of colonoscopy (~12/01/20) Hx of elbow surgery LAMINECTOMY 08/04/15; [facility] – [place] SOFT TISSUE, LEFT L4-L5 FACET CYST. Cervical Laminectomy 2010 Status post laparoscopic hysterectomy Family History Mother Substance abuse Essential hypertension Depression Heart disease Neoplasm SKIN Stroke Father Essential hypertension Heart disease Hyperlipidemia Neoplasm Sister , lung cancer at age 66. Neoplasm LUNG Sister Diabetes Depression Brother Substance abuse OD Depression Neoplasm KIDNEY Brother Substance abuse Essential hypertension Depression Heart disease Hyperlipidemia FAMILY HISTORY Familial tremor Psoriasis Social History Smoking/Tobacco Use Status: Former Tobacco Use tobacco type: cigarettes Quit Date: 11/10/12 Pack-years: 40 Tobacco: How many years used: 40 Second Hand Exposure: Yes Smoking risk assessment performed?: Yes Alcohol Intake: current Alcohol Intake frequency: a few times a week Alcohol type: hard liquor Details: ABOUT 2 DRINKS PER DAY Drug use: Occasionally Substance use type: marijuana Details: Topical THC daily, last time smoke 07/01/23 2100 Caregiver/Support person: No Household members: spouse Housing: house Number of Children: 2 Do you need help understanding health information?: Rarely current occupation: Retired teacher, on disability since 2014 Pets and animals: Yes Pets and animals: cat(s) and dog(s) Sexually active: No Do you think of yourself as: straight/heterosexual Current gender identity: female What is your relationship status?: How often do you talk on the phone with friends or family?: three or more times per week How often do you get together with friends or relatives?: once per week How often do you attend yarsanism or catholic services?: decline to answer Do you belong to any clubs or organized social groups?: no Panel score (0-1 are the most socially isolated patients): 2 What type of physical activity do you participate in: none Frequency: does not exercise Leonie/Hinduism: None Special leonie needs: No Seatbelt use: always Helmet use: Yes Helmet use: always Drive intox or ride w/intox delivery motorcycle driver: No Do you feel safe at home: Yes Do you feel safe in your relationship?: Yes Meds Allergies and Home Medications Allergies Allergy/AdvReac Type Severity Reaction Status Date / Time hydrocodone Allergy Intermediate SOB Verified 07/02/23 11:05 mold Allergy Verified 07/02/23 11:05 norfloxacin Allergy Skin Rash Verified 07/02/23 11:05 pollen extracts Allergy Verified 07/02/23 11:05 duloxetine AdvReac Intermediate Interfers Verified 07/02/23 11:05 with thoughts dust Allergy Uncoded 07/02/23 11:05 Home Medications Medication Instructions Recorded Confirmed Type multivitamin 1 ea PO DAILY 07/29/13 07/02/23 History lactobacillus combination no.8 3 3,000 mmu cells PO DAILY 11/17/20 07/02/23 History billion cell capsule (Adult Probiotic) lidocaine 4 % topical patch 1 patch topical DAILY PRN pain #30 08/30/22 07/01/23 Rx ea fluticasone propionate 50 2 spray intranasal DAILY PRN 12/12/22 07/01/23 History mcg/actuation nasal spray,suspension (Allergy Relief (fluticasone)) imipramine HCl 25 mg tablet 25 mg PO HS #90 tabs 01/08/23 07/02/23 Rx escitalopram oxalate 20 mg tablet 20 mg PO DAILY #90 tab-caps 02/05/23 07/02/23 Rx mecobalamin (vitamin B12) 1,000 1,000 mcg PO DAILY 02/05/23 07/02/23 History mcg chewable tablet (B12 Active) omega 9-klo-kbw-fish oil 60 mg-90 1 cap PO DAILY 04/01/23 07/02/23 History mg-500 mg capsule (Fish Oil) mirabegron 50 mg tablet,extended 50 mg PO DAILY #90 tabs 04/02/23 07/02/23 Rx release 24 hr (Myrbetriq) tizanidine 4 mg tablet 1 mg PO QHS 04/08/23 07/02/23 History pregabalin 150 mg capsule 150 mg PO BID #60 caps 05/05/23 07/01/23 Rx pregabalin 75 mg capsule 75 mg PO QHS #30 caps 05/05/23 07/02/23 Rx tramadol 50 mg tablet See Rx Instructions PO BID PRN 05/27/23 07/02/23 Rx pain #20 tabs terbinafine HCl 1 % topical cream 1 applic topical BID #30 grams 06/18/23 07/02/23 Rx acetaminophen 500 mg tablet 1,000 mg PO TID #90 tabs 07/02/23 Rx fluconazole 150 mg tablet 150 mg PO Q3D 07/02/23 07/02/23 History (Diflucan) ibuprofen 600 mg tablet 600 mg PO TID PRN pain #90 tabs 07/02/23 Rx Exam Resp Auscultation: clear to auscultation bilaterally Cardio Rate: regular rate Rhythm: regular rhythm Results Last Vital Signs Temp 36.5 C 07/02/23 10:55 Pulse 64 07/02/23 10:55 Resp 16 07/02/23 10:55 BP 123/77 07/02/23 10:55 Pulse Ox 98 07/02/23 10:55
[2023-07-02] MEDS: ceFAZolin 2 GM/50 ML BAG IVPB (13:42)
[2023-07-02] MEDS: Lidocaine 1% Pres-Free W/EPI 1/200,000 30 ML VIAL (13:55)
[2023-07-02 14:03] VITALS: BP 93/65; PULSE 64; RESP 17; TEMP 36.4; O2SAT 98
--- NOTE | 2023-07-02 14:14 | W.PM.OP ---
Date of service: 07/02/23 Time of Service: 14:05 Operative Note Operative Note DATE OF PROCEDURE: 07/02/23 PRE-OP DIAGNOSIS: Left Carpal Tunnel Syndrome POST-OP DIAGNOSIS: same PROCEDURE: Left Endoscopic Carpal Tunnel Release SURGEON: Bird Gunn ANESTHESIA TYPE: General:No Airway Refer to Anesthesia Record ESTIMATED BLOOD LOSS: 0 PATHOLOGY: none sent TOURNIQUET TIME: 4 COMPLICATIONS: None Patient was transported to: same day Patient's condition: stable Indications: I have seen Liss in clinic for symptoms of carpal tunnel syndrome in the setting of chronic nerve issues, likely of cervical origin. There was some elements of her exam which could be attributed to carpal tunnel, and therefore I offered carpal tunnel release. I discussed carpal tunnel release with the patient. I reviewed the risks of the procedure to include, but not limited to, bleeding, infection, pain, stiffness, incomplete release, damage to nerves or vessels, persistent numbness, recurrence. Despite these risks, the patient elected to proceed. Findings: There was some fluid in the carpal tunnel but not overly tight. This was dilated and released successfully with the endoscopic with increased space within the tunnel. The antebrachial fascia was released proximally freeing the median nerve at the wrist. Procedure Description: Liss was greeted in the preoperative holding area where the correct side was identified and marked. The consent was reviewed with the patient and signed. The history and physical was updated. All questions were answered. Liss was taken back to the operating room. The patient was placed into the supine position on the operating room table with the left arm on an arm board. A nonsterile tourniquet was placed high onto the arm. All bony prominences were well padded. Prophylactic antibiotics in the form of Cefazolin were administered. The left arm was then prepped with Chloraprep and draped in a standard fashion with stockinette and extremity drape. A timeout to confirm correct identity, side and site, procedure, allergies, anesthesia, and medical concerns was performed. The surgical site was marked in the volar wrist creases in line with the radial border of the fourth ray. This area was anesthetized with approximately 6cc of 1.5% Lidocaine with Epinephrine buffered with sodium bicarbonate. The limb was then exsanguinated with an Esmarch. The skin was incised with a 15 blade, approximately 1cm. The skin only was cut and the deeper tissue was dissected bluntly with a tenotomy scissor, avoiding passing nerve and venous structures. The fascia was penetrated and opened bluntly. A two-prong skin hook was placed under this proximal fascial edge. A series of hamate finders were used to identify and dilate the carpal tunnel. Synovial elevator was used to free synovial attachments to the underside of the transverse carpal ligament. There was some notable fluid within the carpal tunnel. My thumb was kept in the palm to jimbo the distal extent of the carpal tunnel and correctly position the hand. The Microaire endoscope was inserted without difficulty and without resistance. Excellent visualization showed horizontally running fibers of the transverse carpal ligament (TCL). The distal extent of the TCL was visualized and the end of the scope palpated with the thumb. The blade was elevated and withdrawn from distal to proximal. The TCL was split into two flaps. The endoscope was reinserted to confirm complete release and any remnant ligament was incised. The scope was withdrawn and the proximal aspect of the carpal tunnel was grossly inspected and appeared release with the median nerve visible. The antebrachial fascia at the level of the wrist was then freed from the overlying skin and then the underlying median nerve with blunt dissection. This was transected longitudinally for about 3cm proximal to the wrist incision. The wound was then irrigated with easy flow of irrigant distally and proximally. The incision was closed with a single 4-0 Nylon suture. The wound was dressed with Xeroform, Gauze, Kerlix and Thong. The tourniquet was deflated with the initial dressing and held with some pressure. Blood flow returned easily to all digits with capillary refill less than 2 seconds. The patient tolerated the procedure well and was returned to the Same Day Surgery area in a stable condition suffering no known complication.
--- NOTE | 2023-07-02 14:28 | W.ANESPOSTOP ---
Postoperative Evaluation Date, Time and Location Date Performed: 07/02/23 Time Performed: 14:29 Patient Location: Day Surgery Unit Vital Signs Most Recent Imported Vital Signs: Most Recent Vital Signs Temp Pulse Resp BP Pulse Ox 36.4 C L 64 17 93/65 L 98 07/02/23 14:03 07/02/23 14:03 07/02/23 14:03 07/02/23 14:03 07/02/23 14:03 Pain Score Most Recent Pain Score: Most Recent Pain Score Pain Level 0 07/02/23 14:03 Assessment Mental Status: Awake (Alert & Oriented to Patient Baseline) Airway and Respiratory Function: Patent airway with normal (patient baseline) respiratory exam Cardiovascular Function: Hemodynamically Stable Hydration Status: Adequately Hydrated Nausea & Vomiting: No Nausea or Vomiting Pain: Pt. Denies Any Pain Peripheral Nerve Block: Patient did not receive a nerve block
[2023-07-02 14:40] VITALS: BP 98/71; PULSE 64; RESP 16; TEMP 36; O2SAT 98
== END 2023-07-02 15:00 | disposition home or self-care (01) ==
PROVIDERS: PCP Family Medicine; Visit Provider Student in an Organized Health Care Education/Training Program
PROC: 01N54ZZ Release Median Nerve, Percutaneous Endoscopic Approach (ICD-10-PCS; CPT 29848; principal; 2023-07-02 13:30)
DX: G56.02 Carpal tunnel syndrome, left upper limb (principal)
CPT/HCPCS: 29848; J0690; J1885; J2405

== ENCOUNTER → 2023-07-11 10:55 | Outpatient (BNVA) | payer MEDICARE, SELFPAY | PROVIDERS: PCP Family Medicine; Referring Provider Family Medicine; Visit Provider Student in an Organized Health Care Education/Training Program | DX: Z47.89 Encounter for other orthopedic aftercare (principal); G56.02 Carpal tunnel syndrome, left upper limb ==

== ENCOUNTER → 2023-07-28 02:28 | Outpatient (CLI) | payer MEDICARE, SELFPAY ==
--- NOTE | 2023-07-28 08:30 | DI.MAMMO_ITS ---
Exam(s) MAMMO SCREENING EXAM: MAMMO SCREENING CLINICAL HISTORY: screening,Z12.39 TECHNIQUE: Mammograms were interpreted according to the usual protocol including computer analysis w [employer] CAD system, tomosynthesis and C-view imaging. COMPARISON: 2019 and 2021 FINDINGS: The breasts are composed of scattered fibroglandular densities, Breast Density category B. No suspicious masses or suspicious microcalcifications are seen. No skin thickening or abnormal axillary lymph nodes are seen. There has been no significant change from prior exams. IMPRESSION: BI-RADS Category 1, Negative mammogram Yearly screening mammography is recommended. Breast Density - Category B, scattered fibroglandular densities. A negative radiographic report should not delay biopsy if a dominant or clinically suspicious mass is present. Up to ten percent of cancers are not identified on mammography. A negative report may reinforce clinical impression. Adenosis and dense breasts may obscure an underlying neoplasm. False positive reports average 6 to 10%. Patient will receive a letter notifying them of these results.
== END ==
PROVIDERS: PCP Family Medicine; Visit Provider Family Medicine
DX: Z12.31 Encounter for screening mammogram for malignant neoplasm of breast
CPT/HCPCS: 77063; 77067

== ENCOUNTER → 2023-09-30 15:26 | Outpatient (BNVA) | payer MEDICARE, SELFPAY | PROVIDERS: PCP Family Medicine; Visit Provider Nurse Practitioner Gerontology | DX: R39.15 Urgency of urination (principal) | CPT/HCPCS: 51798; 99213 ==

== ENCOUNTER 2023-10-13 16:04 | Outpatient (CLI) | payer MEDICARE, SELFPAY ==
--- NOTE | 2023-10-13 10:45 | DI.RAD_ITS ---
Exam(s) XR WRIST RT COMPL NAVICULAR EXAM: XR WRIST RT COMPL NAVICULAR CLINICAL HISTORY: eval R wrist apin. TECHNIQUE: 2D digital imaging was performed. Three views. COMPARISON: CR XR WRIST RT COMPLETE from 01/31/2020 FINDINGS: BONES: No acute fracture is present. No bony destructive lesion is seen. Benign appearing small cysti c areas distal ulna. JOINTS: The carpal bones are normally aligned. SOFT TISSUE: Normal. IMPRESSION: No acute abnormality. DATA REPOSITORY: RADIATION DOSE DELIVERED:
== END 2023-10-13 16:05 | disposition home or self-care (01) ==
LOC: DIORS 16:04
PROVIDERS: PCP Family Medicine; Visit Provider Student in an Organized Health Care Education/Training Program
DX: M25.531 Pain in right wrist (principal); M65.4 Radial styloid tenosynovitis [de Quervain]; G56.02 Carpal tunnel syndrome, left upper limb
CPT/HCPCS: 99214; 73110

== ENCOUNTER 2023-10-22 06:22 | Day surgery (SDC) | payer MEDICARE, SELFPAY ==
[2023-10-22 06:46] VITALS: BP 128/71; PULSE 75; RESP 18; TEMP 36.1; O2SAT 99
[2023-10-22] MEDS: Lactated Ringers 1,000 ML 80 ML IV (07:00)
--- NOTE | 2023-10-22 07:05 | ANES.PREOP_ITS ---
General Info Date of Service Date Performed: 10/22/23 Height: 5 ft 3 in Weight: 103 kg Body Mass Index (BMI): 40.2 Surgical Procedure: Operation Date: 10/22/23 07:40 Proposed Procedure Side Surgeon p Wrist ECTR Right Bird Gunn MD Pre-Op Diagnosis Post-Op Diagnosis RT ECTR RT ECTR Meds Allergies and Home Medications Allergies Allergy/AdvReac Type Severity Reaction Status Date / Time hydrocodone Allergy Intermediate SOB Verified 10/22/23 06:39 mold Allergy Verified 10/22/23 06:39 norfloxacin Allergy Skin Rash Verified 10/22/23 06:39 pollen extracts Allergy Verified 10/22/23 06:39 lavender (Lavandula AdvReac Severe Other (See Verified 10/22/23 06:39 angustifolia) Comment) duloxetine AdvReac Intermediate Interfers Verified 10/22/23 06:39 with thoughts dust Allergy Uncoded 10/22/23 06:39 Home Medication Medication Instructions Recorded multivitamin 1 ea PO DAILY 07/29/13 lactobacillus combination no.8 3 3,000 mmu cells PO DAILY 11/17/20 billion cell capsule (Adult Probiotic) lidocaine 4 % topical patch 1 patch topical DAILY PRN pain #30 08/30/22 ea fluticasone propionate 50 2 spray intranasal DAILY PRN 12/12/22 mcg/actuation nasal spray,suspension (Allergy Relief (fluticasone)) imipramine HCl 25 mg tablet 25 mg PO HS #90 tabs 01/08/23 mecobalamin (vitamin B12) 1,000 1,000 mcg PO DAILY 02/05/23 mcg chewable tablet (B12 Active) omega 9-fwv-xbv-fish oil 60 mg-90 1 cap PO DAILY 04/01/23 mg-500 mg capsule (Fish Oil) mirabegron 50 mg tablet,extended 50 mg PO DAILY #90 tabs 04/02/23 release 24 hr (Myrbetriq) tizanidine 4 mg tablet 1 mg PO QHS 04/08/23 terbinafine HCl 1 % topical cream 1 applic topical BID #30 grams 06/18/23 acetaminophen 500 mg tablet 1,000 mg (2 x 500 mg) PO TID #90 07/02/23 tabs ibuprofen 600 mg tablet 600 mg PO TID PRN pain #90 tabs 08/23/23 pregabalin 150 mg capsule 150 mg PO BID #60 caps 07/16/23 pregabalin 75 mg capsule 75 mg PO QHS #30 caps 07/16/23 tramadol 50 mg tablet See Rx Instructions PO BID PRN 07/16/23 pain #40 tabs vortioxetine 10 mg tablet 10 mg PO DAILY 10/08/23 Current Visit Medications: Current Medications Generic Name Dose Route Start Last Admin Trade Name Tara PRN Reason Stop Dose Admin Ringer's Solution 1,000 mls @ 80 mls/hr 10/22/23 06:00 10/22/23 07:00 IV 11/20/23 23:59 80 mls/hr INFUSION ABDIAZIZ Administration Cefazolin Sodium/Dextrose 2 gm in 50 mls @ 100 mls/hr 10/22/23 06:00 Ancef Duplex IVPB 11/20/23 23:59 PREOP ABDIAZIZ IV Miscellaneous Supplies 1 each 10/22/23 06:00 Iv Access IV 11/20/23 23:59 DIRECTED ABDIAZIZ Sodium Chloride 0 ml 10/22/23 06:00 Normal Saline Flush 10 Ml Syr IV 11/20/23 23:59 PRN PRN Sodium Chloride 0 ml 10/22/23 06:00 Normal Saline 10 Ml Vial IJ 11/20/23 23:59 DIRECTED PRN Sterile Water 0 ml 10/22/23 06:00 Water,Injection,Sterile 10 Ml Vial IJ 11/20/23 23:59 DIRECTED PRN PFSH Active Problems Active Problems: Problem Status Onset Code Right carpal tunnel syndrome G56.01 Pain disorder associated with psychological and physical factors F45.42 Psychological and behavioral factors associated with disorders or diseases classified elsewhere F54 Psychological factors affecting medical condition F54 Morbid obesity with BMI of 40.0-44.9, adult E66.01, Z68.41 Chronic pain G89.29 Cervical radiculitis M54.12 Sleep related leg cramps G47.62 Irritable bowel syndrome with mixed bowel habits K58.2 Chronic frontal sinusitis J32.1 Sacroiliac joint dysfunction of left side M53.3 Right wrist pain M25.531 Hyperlipidemia E78.5 KAITLIN on CPAP G47.33, Z99.89 Tenosynovitis, de Quervain M65.4 Depressive disorder F32.9 Spinal stenosis in cervical region 03/25/13 M48.02 Primary fibromyalgia syndrome M79.7 Neck pain M54.2 Hypothyroidism 03/21/15 E03.9 Urinary, incontinence, stress female 06/23/13 N39.3 Medical History Medical History Cervical vertebral fusion History of neck pain Hypercholesterolemia Hx of migraines Arthritis COPD (chronic obstructive pulmonary disease) History of IBS Synovial cyst Hx of head injury 20-30 years, no residual deficits per pt. Diverticula of colon diverticula carry all the way over to the right colon. Colon has poor tone and extremely tortuous. Mass of soft tissue of elbow removed 09/2020 History of alcoholism History of tobacco use Tinnitus, bilateral (05/07/16) Claustrophobia (01/16/17) Surgical History Surgical History H/O tubal ligation H/O arthroscopy of right knee History of cholecystectomy Hx of elbow surgery History of colonoscopy (~12/01/20) History of bladder repair surgery Status post laparoscopic hysterectomy cervical fusion C 4-5 (03/10/17) LAMINECTOMY 08/04/15; [facility] [place] SOFT TISSUE, LEFT L4-L5 FACET CYST. Cervical Laminectomy 2009 Tobacco Smoking/Tobacco Use Status: Former Tobacco Use Passive smoking exposure: Yes Second hand exposure: Yes Alcohol Alcohol Intake: current Alcohol intake frequency: a few times a week Alcohol type: hard liquor Details: ABOUT 2 DRINKS PER DAY Substance Use Substance use: Occasionally Substance use type: marijuana Details: alcohol: t-1, couple drinks. Marijuana: t-1, joint Vital Signs and Lab Results Vital Signs Most Recent Vital Signs in EMR: Most Recent Vital Signs Temp Pulse Resp BP Pulse Ox 36.1 C L 75 18 128/71 99 10/22/23 06:46 10/22/23 06:46 10/22/23 06:46 10/22/23 06:46 10/22/23 06:46 Lab Results Blood Type / Crossmatch: No Data to Display Complete Blood Count: No Data to Display Complete Metabolic Panel: No Data to Display Liver Function Panel: No Data to Display Coagulation Panel: No Data to Display Cardiac Panel: No Data to Display Arterial Blood Gas: No Data to Display Venous Blood Gas: No Data to Display Pancreas Panel: No Data to Display Thyroid Panel: No Data to Display Infectious Disease: No Data to Display Blood Cultures: No Data to Display Toxicology Panel: No Data to Display Anesthesia Assessment and Plan Anesthesia History Personal History: No History of Anesthesia Complications Family History: No Family History of Anesthesia Complications Exercise Tolerance Exercise Tolerance: Metabolic Equivalents>4 Pertinent Negatives Pertinent Negatives: No Symptoms of GERD Cardiac & Pulmonary Exam Cardiac Exam: Normal S1/S2 Heart Sounds Pulmonary Exam: Clear Bilateral Breath Sounds Implantable Cardiac Device Does patient have a Pacemaker or an ICD?: No Airway Exam Known Difficult Airway: No Mallampati Class: 2 Mouth Opening: Normal (> 3cm) Thyromental Distance: Greater than 3 cm Neck Range of Motion: Full ROM and History of Cervical Fusion (Reports FCROM but uncomfortable ) Neck Circumference: Normal Teeth Condition: Normal Dentition and Removable Dentures/Plates Upper ASA Classification ASA Score: ASA 2 Emergency Case?: No NPO Status NPO Status: NPO Clears >2 hours, Solids >8 hours Anesthesia Plan Resuscitation Status: Full Code Anesthesia Technique: General Anesthesia Airway Planned: Natural Airway Monitors Used: Standard Monitors
[2023-10-22 07:06] VITALS: BMI 40.2
--- NOTE | 2023-10-22 07:16 | PDOC.DSDIS_ITS ---
Date of service: 10/22/23 Time of Service: 07:17 Discharge Plan Disposition Patient Disposition: Home Condition: Good Discharge Details Reason For Visit: R ECTR Attending Provider: Bird Gunn Primary Care Provider: Korina Roman Home Meds and New Rx's Prescriptions: Continued fluticasone propionate [Allergy Relief (fluticasone)] 50 mcg/actuation spray,suspension 2 spray intranasal DAILY PRN Rx Instructions: administer into each nostril imipramine HCl 25 mg tablet 25 mg PO HS Qty: 90 4RF vortioxetine 10 mg tablet 10 mg PO DAILY Adult Probiotic 3 billion cell capsule 3,000 mmu cells PO DAILY Rx Instructions: administer with a meal lidocaine 4 % adhesive patch,medicated 1 patch topical DAILY PRN (Reason: pain) Qty: 30 1RF Rx Instructions: Apply patch to most painful area, may leave on for up to 12 hrs tizanidine 4 mg tablet 1 mg PO QHS omega 2-oou-ffl-fish oil [Fish Oil] 60-90-500 mg capsule 1 cap PO DAILY Myrbetriq 50 mg tablet extended release 24 hr 50 mg PO DAILY Qty: 90 3RF pregabalin 75 mg capsule 75 mg PO QHS Qty: 30 3RF Rx Instructions: Take with the 150mg dose at bedtime. pregabalin 150 mg capsule 150 mg PO BID Qty: 60 3RF Rx Instructions: no abrupt cessation tramadol 50 mg tablet See Rx Instructions PO BID PRN (Reason: pain) Qty: 40 0RF Rx Instructions: 25-50mg orally twice a day PRN; multivitamin 1 EACH tablet 1 ea PO DAILY terbinafine HCl 1 % cream 1 applic topical BID Qty: 30 3RF mecobalamin (vitamin B12) [B12 Active] 1,000 mcg tablet,chewable 1,000 mcg PO DAILY acetaminophen 500 mg tablet 1,000 mg PO TID Qty: 90 0RF ibuprofen 600 mg tablet 600 mg PO TID PRN (Reason: pain) Qty: 90 0RF Discharge Instructions Additional Instructions: May take ibuprofen 600 mg 3 times daily and acetaminophen 1000 mg 3 times daily as needed for pain. Stand Alone Forms: Anesthesia Discharge Inst., Velia Alvarez Tunnel ReleaseSean (DSU) Referrals: Bird Gunn MD [ [facility] STAFF PHYSICIAN] - 10/31/23 9:30 am Activity:: Activity as Tolerated Remove Dressings/Wound Care:: 48 hours Shower/Bathe:: 48 hours Diet:: As Tolerated Discharge Orders Discharge Orders: Discharge Order (Routine); Ordered 10/22/23 Ordered By: Kelvin Dumont DS: Diagnosis Discharge Diagnosis (1) Right carpal tunnel syndrome: Status: Acute
--- NOTE | 2023-10-22 07:18 | HPE_ITS ---
Assessment and Plan Assessment and plan (1) Right carpal tunnel syndrome: Status: Acute Assessment and plan: Liss is a 63-year-old female who has carpal tunnel syndrome and associated symptoms about the right side. She has a complex history. This is detailed in previous office note. She is here today for carpal tunnel release on the right side. Once again I reviewed the risk of the procedure with her to include bleeding, infection, pain, stiffness, damage to nerves and vessels, damage to muscle and tendons, recurrence, incomplete release, continued symptoms. Despite these risk, she elects to proceed. History of Present Illness Narrative: Liss is a 63-year-old who is here today for her right carpal tunnel. Please see the previous office note for complete detailed history. She is tolerated the left side the surgery quite well and has no questions today about the right side. She is in no changes to her health. No new chest pain or shortness of breath. No new recent illness or new medications. Review of Systems All systems reviewed & are unremarkable except as noted in HPI and below PFSH All Active Problems Right carpal tunnel syndrome (Acute) S/P ECTR: 10/22/2023 Pain disorder associated with psychological and physical factors (Acute) Psychological and behavioral factors associated with disorders or diseases classified elsewhere (Acute) Psychological factors affecting medical condition (Acute) Morbid obesity with BMI of 40.0-44.9, adult (Acute) Chronic pain (Chronic) Cervical radiculitis (Acute) Sleep related leg cramps (Acute) Irritable bowel syndrome with mixed bowel habits (Acute) Chronic frontal sinusitis (Acute) Sacroiliac joint dysfunction of left side (Acute) Right wrist pain (Acute) Hyperlipidemia (Acute) KAITLIN on CPAP (Chronic) Tenosynovitis, de Quervain (Acute) Depressive disorder (Chronic) Spinal stenosis in cervical region (Acute 03/25/13) Primary fibromyalgia syndrome (Acute) she has generalized pain Neck pain (Acute) left shoulder and neck pain; has seen a chiropractor, received manipulatin, massage Hypothyroidism (Chronic 03/21/15) Urinary, incontinence, stress female (Acute 06/23/13) Medical History Cervical vertebral fusion History of neck pain Hypercholesterolemia Hx of migraines Arthritis COPD (chronic obstructive pulmonary disease) History of IBS Synovial cyst Hx of head injury 20-30 years, no residual deficits per pt. Diverticula of colon diverticula carry all the way over to the right colon. Colon has poor tone and extremely tortuous. Mass of soft tissue of elbow removed 09/2020 History of alcoholism History of tobacco use Tinnitus, bilateral (05/07/16) Claustrophobia (01/16/17) Surgical History Carpal tunnel syndrome of left wrist s/p left ECTR DOS: 07/02/23 H/O tubal ligation H/O arthroscopy of right knee History of cholecystectomy Hx of elbow surgery History of colonoscopy (~12/01/20) History of bladder repair surgery Status post laparoscopic hysterectomy cervical fusion C 4-5 (03/10/17) LAMINECTOMY 08/04/15; [facility] [place] SOFT TISSUE, LEFT L4-L5 FACET CYST. Cervical Laminectomy 2009 Family History Mother Substance abuse Essential hypertension Depression Heart disease Neoplasm SKIN Stroke Father Essential hypertension Heart disease Hyperlipidemia Neoplasm Sister , lung cancer at age 66. Neoplasm LUNG Sister Diabetes Depression Brother Substance abuse OD Depression Neoplasm KIDNEY Brother Substance abuse Essential hypertension Depression Heart disease Hyperlipidemia FAMILY HISTORY Familial tremor Psoriasis Social History Smoking/Tobacco Use Status: Former Tobacco Use tobacco type: cigarettes Quit Date: 11/10/12 Pack-years: 40 Tobacco: How many years used: 40 Second Hand Exposure: Yes Smoking risk assessment performed?: Yes Alcohol Intake: current Alcohol Intake frequency: a few times a week Alcohol type: hard liquor Details: ABOUT 2 DRINKS PER DAY Drug use: Occasionally Substance use type: marijuana Details: alcohol: t-1, couple drinks. Marijuana: t-1, joint Caregiver/Support person: No Household members: spouse Housing: house Number of Children: 2 Do you need help understanding health information?: Rarely current occupation: Retired teacher, on disability since 2014 Pets and animals: Yes Pets and animals: cat(s) and dog(s) Sexually active: No Do you think of yourself as: straight/heterosexual Current gender identity: female What is your relationship status?: How often do you talk on the phone with friends or family?: three or more times per week How often do you get together with friends or relatives?: once per week How often do you attend nondenominational or congregational services?: decline to answer Do you belong to any clubs or organized social groups?: no Panel score (0-1 are the most socially isolated patients): 2 What type of physical activity do you participate in: none Frequency: does not exercise Leonie/Restoration: None Special leonie needs: No Seatbelt use: always Helmet use: Yes Helmet use: always Drive intox or ride w/intox pile driver operator: No Do you feel safe at home: Yes Do you feel safe in your relationship?: Yes Meds Allergies and Home Medications Allergies Allergy/AdvReac Type Severity Reaction Status Date / Time hydrocodone Allergy Intermediate SOB Verified 10/22/23 06:39 mold Allergy Verified 10/22/23 06:39 norfloxacin Allergy Skin Rash Verified 10/22/23 06:39 pollen extracts Allergy Verified 10/22/23 06:39 lavender (Lavandula AdvReac Severe Other (See Verified 10/22/23 06:39 angustifolia) Comment) duloxetine AdvReac Intermediate Interfers Verified 10/22/23 06:39 with thoughts dust Allergy Uncoded 10/22/23 06:39 Home Medications Medication Instructions Recorded Confirmed Type multivitamin 1 ea PO DAILY 07/29/13 10/22/23 History lactobacillus combination no.8 3 3,000 mmu cells PO DAILY 11/17/20 10/22/23 History billion cell capsule (Adult Probiotic) lidocaine 4 % topical patch 1 patch topical DAILY PRN pain #30 08/30/22 10/22/23 Rx ea fluticasone propionate 50 2 spray intranasal DAILY PRN 12/12/22 10/22/23 History mcg/actuation nasal spray,suspension (Allergy Relief (fluticasone)) imipramine HCl 25 mg tablet 25 mg PO HS #90 tabs 01/08/23 10/22/23 Rx mecobalamin (vitamin B12) 1,000 1,000 mcg PO DAILY 02/05/23 10/22/23 History mcg chewable tablet (B12 Active) omega 2-ess-tmz-fish oil 60 mg-90 1 cap PO DAILY 04/01/23 10/22/23 History mg-500 mg capsule (Fish Oil) mirabegron 50 mg tablet,extended 50 mg PO DAILY #90 tabs 04/02/23 10/22/23 Rx release 24 hr (Myrbetriq) tizanidine 4 mg tablet 1 mg PO QHS 04/08/23 10/22/23 History terbinafine HCl 1 % topical cream 1 applic topical BID #30 grams 06/18/23 10/22/23 Rx acetaminophen 500 mg tablet 1,000 mg (2 x 500 mg) PO TID #90 07/02/23 10/22/23 Rx tabs ibuprofen 600 mg tablet 600 mg PO TID PRN pain #90 tabs 07/02/23 10/22/23 Rx pregabalin 150 mg capsule 150 mg PO BID #60 caps 07/16/23 10/22/23 Rx pregabalin 75 mg capsule 75 mg PO QHS #30 caps 07/16/23 10/22/23 Rx tramadol 50 mg tablet See Rx Instructions PO BID PRN 07/16/23 10/22/23 Rx pain #40 tabs vortioxetine 10 mg tablet 10 mg PO DAILY 10/08/23 10/22/23 History Exam Resp Effort & Inspection: normal respiratory effort Auscultation: clear to auscultation bilaterally Cardio Rate: regular rate Rhythm: regular rhythm Results Last Vital Signs Temp 36.1 C L 10/22/23 06:46 Pulse 75 10/22/23 06:46 Resp 18 10/22/23 06:46 BP 128/71 10/22/23 06:46 Pulse Ox 99 10/22/23 06:46
[2023-10-22] MEDS: ceFAZolin 2 GM/50 ML BAG IVPB (07:32)
[2023-10-22] MEDS: Lidocaine 1% Multi-Dose W/EPI 1/100,000 50 ML VIAL (07:38)
--- NOTE | 2023-10-22 07:45 | W.PM.OP ---
Date of service: 10/22/23 Time of Service: 07:46 Operative Note Operative Note DATE OF PROCEDURE: 10/22/23 PRE-OP DIAGNOSIS: Right Carpal Tunnel Syndrome POST-OP DIAGNOSIS: same PROCEDURE: Right Endoscopic Carpal Tunnel Release SURGEON: Bird Gunn ANESTHESIA TYPE: General:No Airway Refer to Anesthesia Record ESTIMATED BLOOD LOSS: 0 PATHOLOGY: none sent TOURNIQUET TIME: 3 COMPLICATIONS: None Patient was transported to: same day Patient's condition: stable Indications: I have seen Liss in clinic for symptoms of carpal tunnel syndrome. The numbness, tingling, and pain limited function. Clinical exam findings suggested the diagnosis of carpal tunnel syndrome. Nonoperative measures such as bracing, time, activity modifications had been tried but disability and pain persisted. I discussed carpal tunnel release with the patient. I reviewed the risks of the procedure to include, but not limited to, bleeding, infection, pain, stiffness, incomplete release, damage to nerves or vessels, persistent numbness, recurrence. Despite these risks, the patient elected to proceed. Findings: There was tightened carpal tunnel. This was dilated and released successfully with the endoscopic with increased space within the tunnel. The antebrachial fascia was released proximally freeing the median nerve at the wrist. Procedure Description: Liss was greeted in the preoperative holding area where the correct side was identified and marked. The consent was reviewed with the patient and signed. The history and physical was updated. All questions were answered. She was taken back to the operating room. The patient was placed into the supine position on the operating room table with the right arm on an arm board. A nonsterile tourniquet was placed high onto the arm. All bony prominences were well padded. Prophylactic antibiotics in the form of Cefazolin were administered. The right arm was then prepped with Chloraprep and draped in a standard fashion with stockinette and extremity drape. A timeout to confirm correct identity, side and site, procedure, allergies, anesthesia, and medical concerns was performed. The surgical site was marked in the volar wrist creases in line with the radial border of the fourth ray. This area was anesthetized with approximately 6cc of 1% Lidocaine. The limb was then exsanguinated with an Esmarch. The skin was incised with a 15 blade, approximately 1cm. The skin only was cut and the deeper tissue was dissected bluntly with a tenotomy scissor, avoiding passing nerve and venous structures. The fascia was penetrated and opened bluntly. A two-prong skin hook was placed under this proximal fascial edge. A series of hamate finders were used to identify and dilate the carpal tunnel. Synovial elevator was used to free synovial attachments to the underside of the transverse carpal ligament. My thumb was kept in the palm to jimbo the distal extent of the carpal tunnel and correctly position the hand. The [employer]aire endoscope was inserted without difficulty and without resistance. Excellent visualization showed horizontally running fibers of the transverse carpal ligament (TCL). The distal extent of the TCL was visualized and the end of the scope palpated with the thumb. The blade was elevated and withdrawn from distal to proximal. The TCL was split into two flaps. The endoscope was reinserted to confirm complete release and any remnant ligament was incised. The scope was withdrawn and the proximal aspect of the carpal tunnel was grossly inspected and appeared release with the median nerve visible. The antebrachial fascia at the level of the wrist was then freed from the overlying skin and then the underlying median nerve with blunt dissection. This was transected longitudinally for about 3cm proximal to the wrist incision. The wound was then irrigated with easy flow of irrigant distally and proximally. The incision was closed with a single 4-0 Nylon suture. The wound was dressed with Xeroform, Gauze, Kerlix and Thong. The tourniquet was deflated with the initial dressing and held with some pressure. Blood flow returned easily to all digits with capillary refill less than 2 seconds. The patient tolerated the procedure well and was returned to the Same Day Surgery area in a stable condition suffering no known complication.
[2023-10-22 07:47] VITALS: BP 120/78; PULSE 80; RESP 16; TEMP 36.3; O2SAT 94
--- NOTE | 2023-10-22 07:52 | W.ANESPOSTOP ---
Postoperative Evaluation Date, Time and Location Date Performed: 10/22/23 Time Performed: 07:52 Patient Location: Day Surgery Unit Vital Signs Most Recent Imported Vital Signs: Most Recent Vital Signs Temp Pulse Resp BP Pulse Ox 36.1 C L 75 18 128/71 99 10/22/23 06:46 10/22/23 06:46 10/22/23 06:46 10/22/23 06:46 10/22/23 06:46 Pain Score Most Recent Pain Score: Most Recent Pain Score Pain Level 8 10/22/23 06:46 Assessment Mental Status: Awake (Alert & Oriented to Patient Baseline) Airway and Respiratory Function: Patent airway with normal (patient baseline) respiratory exam Cardiovascular Function: Hemodynamically Stable Hydration Status: Adequately Hydrated Nausea & Vomiting: No Nausea or Vomiting Pain: Pt. Denies Any Pain Peripheral Nerve Block: Patient did not receive a nerve block
[2023-10-22 08:12] VITALS: BP 118/78; PULSE 76; RESP 18; TEMP 36.3; O2SAT 94
== END 2023-10-22 09:00 | disposition home or self-care (01) ==
PROVIDERS: PCP Family Medicine; Visit Provider Student in an Organized Health Care Education/Training Program
PROC: 01N54ZZ Release Median Nerve, Percutaneous Endoscopic Approach (ICD-10-PCS; CPT 29848; principal; 2023-10-22 07:30)
DX: G56.01 Carpal tunnel syndrome, right upper limb (principal); M65.4 Radial styloid tenosynovitis [de Quervain]; M25.531 Pain in right wrist
CPT/HCPCS: 29848; J0690; J1100; J1885; J2001; J2405; J2704

== ENCOUNTER → 2023-10-31 09:31 | Outpatient (BNVA) | payer MEDICARE, SELFPAY | PROVIDERS: PCP Family Medicine; Referring Provider Family Medicine | DX: Z47.89 Encounter for other orthopedic aftercare (principal); M79.641 Pain in right hand ==

== ENCOUNTER → 2024-01-16 01:00 | Outpatient (CLI) | payer MEDICARE, SELFPAY ==
--- NOTE | 2024-01-16 07:00 | DI.RAD_ITS ---
Exam(s) XR HIP LT COMPLETE AP PELVIS EXAM: XR HIP LT COMPLETE AP PELVIS CLINICAL HISTORY: left hip pain,m25.552. TECHNIQUE: 2D digital imaging was performed of the left hip. Two views were obtained. AP pelvis an d lateral left hip views were obtained. COMPARISON: No exams were available for comparison FINDINGS: BONES: No acute fracture is present. No bony destructive lesion is seen. JOINTS: No dislocation present. The joint spaces are well maintained. The sacroiliac joints and symp hysis pubis are unremarkable. Degenerative changes are seen in the lower lumbar spine. SOFT TISSUE: There is a moderate amount of stool in the colon. IMPRESSION: 1. Unremarkable radiographs of the left hip. 2. Degenerative changes in the lower lumbar spine. 3. Moderate amount of stool in the colon. DATA REPOSITORY: RADIATION DOSE DELIVERED:
--- NOTE | 2024-01-16 07:00 | DI.RAD_ITS ---
Exam(s) XR CHEST 2V PA LATERAL EXAM: XR CHEST 2V PA LATERAL CLINICAL HISTORY: palpitations,r00.2 TECHNIQUE: 2D digital imaging was performed of the chest. Two images were obtained. PA and lateral views were obtained. COMPARISON: CR CHEST 2 VIEWS PA,LAT from 02/21/2017 FINDINGS: MEDIASTINUM: Normal. HEART: Normal. PULMONARY VASCULATURE: Normal. LUNGS: Clear. PLEURAL SPACE: No pleural effusion or pneumothorax. BONE:Within normal limits for the patient's age. There is again seen anterior cervical disc fusion. OTHER FINDINGS:Surgical clips are again seen in the right upper quadrant of the abdomen likely reflec ting prior cholecystectomy. IMPRESSION: No acute pulmonary findings. DATA REPOSITORY: RADIATION DOSE DELIVERED:
== END ==
PROVIDERS: PCP Family Medicine; Visit Provider Family Medicine
DX: M25.552 Pain in left hip (principal); R00.2 Palpitations
CPT/HCPCS: 71046; 73502

== ENCOUNTER 2024-01-29 09:21 | Outpatient (RCR) | payer MEDICARE, SELFPAY ==
--- NOTE | 2024-01-29 09:45 | HOLTER_ITS ---
APPROVED REPORT Conclusion This is a 48-hour Holter monitor Rhythm throughout sinus with an average heart rate 62. Minimum was 50, maximum 92 There were 16 isolated premature ventricular contractions There were 2 atrial premature beats Symptoms were reported which had no correlation with any dysrhythmia
== END 2024-02-08 23:59 | disposition home or self-care (01) ==
LOC: CARDOPNVT 09:21
PROVIDERS: PCP Family Medicine; Visit Provider Family Medicine
DX: R00.2 Palpitations (principal)
CPT/HCPCS: 93227; 93225; 93226

== ENCOUNTER 2024-02-19 05:37 | Outpatient (CLI) | payer MEDICARE, SELFPAY ==
[2024-02-19 12:44] LABS: Anion Gap 8.3 mmol/L (3-11); BUN 14 mg/dL (7-18); CO2 29.7 mmol/L (21.0-32.0); Chloride 104 mmol/L (98-107); Cholesterol 348 mg/dL (<200); Estimated GFR 62.91 (mL/min/1.73m2); Glucose 109 mg/dL (74-106); HDL Cholesterol 52 mg/dL (40-60); Potassium 4.1 mmol/L (3.5-5.1); Sodium 142 mmol/L (136-145); TSH (W/Ref FT4) 2.51 uIU/mL (0.36-3.74); Triglyceride 401 mg/dL (<150)
[2024-02-19 13:04] LABS: LDL CHOLESTEROL 175 mg/dL (<100)
== END 2024-02-19 05:38 | disposition home or self-care (01) ==
LOC: LOS 05:38
PROVIDERS: PCP Family Medicine; Visit Provider Family Medicine
DX: Z13.6 Encounter for screening for cardiovascular disorders (principal); E03.9 Hypothyroidism, unspecified; R00.2 Palpitations
CPT/HCPCS: 36415; 80048; 80061; 83721; 84443

== ENCOUNTER → 2024-03-30 15:20 | Outpatient (BNVA) | payer MEDICARE, SELFPAY | PROVIDERS: PCP Family Medicine; Visit Provider Nurse Practitioner Gerontology | DX: R39.15 Urgency of urination (principal) | CPT/HCPCS: 51798; 99213 ==

== ENCOUNTER 2024-03-31 15:09 | Outpatient (CLI) | payer MEDICARE, SELFPAY ==
[2024-03-31 15:11] VITALS: BP 132/92; PULSE 71; RESP 20; TEMP 36.6; O2SAT 96
[2024-03-31 15:52] VITALS: PULSE 67; O2SAT 95
[2024-03-31] MEDS: methylPREDNISolone ACETATE 40 MG/ML VIAL IJ (15:53)
[2024-03-31] MEDS: Nerve Block Tray 1 EACH MC (15:53)
[2024-03-31] MEDS: Bupivacaine 0.5% Pres-Free 10 ML VIAL IJ (15:54)
--- NOTE | 2024-03-31 16:14 | PDOC.PAIN ---
Date of service: 03/31/24 Time of Service: 16:14 US Guided Injections Referral Patient has been [facility] the [facility] for Left Trochanteric Bursa Injection for a chief complaint of Left lateral hip pain Pre-Procedural Pain Score Pre-procedural pain score: 4/10 Reason for Exam Left lateral hip pain Patient Interview Patient was interviewed and medical record reviewed: Yes There were no contraindications to performing an US guided procedure. Risks,expected side effects, potential benefits were reviewed. The patient consent form was signed and witnessed. Standard time out procedure was performed. Patient Safety no skin abnormalities at the injection site Procedure Description No sedation given for procedure Patient was placed in the right lateral recumbent position and the following Pulse Ox applied. Pre-Procedure ultrasound scanning performed using a Linear 9 MHz probe Site Preparation Chloroprep Local Anesthesia Skin and subcutaneous tissues anesthetized with: 2 mL of Lidocaine 2%. A 21 G 3.5 Pajunk ultrasound needle was placed under live US guidance using an in-plane approach to the target area. After visualization of the needle tip at the target area Bupivacaine 0.5% and Dep-Medrol 80mg per cc were used. Total of Injectate/Medication Note: 1 cc of Depomedrol and 4 cc of 0.5% Bupivacaine Negative aspiration for blood. [place] were removed without difficulty. Ultrasound images were captured and stored. Patient Mental Status Patient was alert during procedure Vital Signs Vital signs were stable throughout the procedure and recorded by nursing. Follow Up/Discharge Follow up plans and appointments were discussed with patient. Post procedure instruction was given as documented in nursing documentation. Discharge criteria met and patient discharged from [facility]: Yes Post Procedure Pain Post Procedure Pain: 5/10 Patient tolerated procedure well Procedure Outcome: Successful Bursa Injection Non US Guided Injections Procedure Description Patient was placed in the right lateral recumbent position Post Procedure Pain Post Procedure Pain: 5/10
== END 2024-03-31 15:10 | disposition home or self-care (01) ==
LOC: PC 15:09
PROVIDERS: PCP Family Medicine; Visit Provider Preventive Medicine Occupational Medicine
DX: M70.62 Trochanteric bursitis, left hip (principal)
CPT/HCPCS: 20610; 20611; J0665; J1010

== ENCOUNTER → 2024-06-16 17:32 | Outpatient (CLI) | payer MEDICARE, SELFPAY ==
--- NOTE | 2024-06-16 16:25 | DI.RAD_ITS ---
Exam(s) XR RIBS LT W PA LAT CHEST CLINICAL HISTORY left sided chest wall pain, R07.89. COMPARISON: CR XR CHEST 2V PA LATERAL from 01/16/2024 TECHNIQUE:: PA and lateral views of the chest and four views of the left ribs were performed. FINDINGS: LUNGS: Clear. No pleural abnormality seen. HEART: Normal. MEDIASTINUM: Normal. BONES: No displaced rib fracture is seen. No compression fractures are seen in the thoracic spine. No bony destructive lesion is seen. Hardware lower cervical spine. Mild degenerative changes thorac ic spine. Minimal degenerative changes in the left shoulder. IMPRESSION: 1. Unremarkable radiographic appearance of the left ribs. 2. No acute pulmonary findings.
== END ==
PROVIDERS: PCP Family Medicine; Visit Provider Family Medicine
DX: R07.89 Other chest pain (principal)
CPT/HCPCS: 71046; 71100

== ENCOUNTER → 2024-09-27 14:52 | Outpatient (BNVA) | payer MEDICARE, SELFPAY | PROVIDERS: PCP Family Medicine; Visit Provider Nurse Practitioner Gerontology | DX: R39.15 Urgency of urination (principal) | CPT/HCPCS: 51798; 99213 ==

== ENCOUNTER 2025-01-21 00:36 | Outpatient (CLI) | payer MEDICARE, SELFPAY ==
[2025-01-21 12:45] LABS: Hemoglobin A1C 5.4 % (<5.7)
[2025-01-21 12:51] LABS: BUN 17 mg/dL (7-18); CREATININE 0.9 mg/dL (0.55-1.02); Calcium 9.2 mg/dL (8.5-10.1); Calculated LDL 98 mg/dL (<100); Chloride 106 mmol/L (98-107); Cholesterol 210 mg/dL (<200); Estimated GFR 70.95 (mL/min/1.73m2); Glucose 109 mg/dL (74-106); HDL Cholesterol 55 mg/dL (>or=50); Potassium 4.6 mmol/L (3.5-5.1); Sodium 142 mmol/L (136-145); Triglyceride 287 mg/dL (<150)
== END 2025-01-21 00:37 | disposition home or self-care (01) ==
LOC: LOS 00:36
PROVIDERS: PCP Family Medicine; Visit Provider Family Medicine
DX: Z13.1 Encounter for screening for diabetes mellitus (principal); G47.33 Obstructive sleep apnea (adult) (pediatric); Z99.89 Dependence on other enabling machines and devices; R73.01 Impaired fasting glucose; Z13.6 Encounter for screening for cardiovascular disorders
CPT/HCPCS: 36415; 80048; 80061; 83036

== ENCOUNTER 2025-02-09 02:09 | Outpatient (CLI) | payer MEDICARE, SELFPAY ==
--- NOTE | 2025-02-09 08:00 | DI.MAMMO_ITS ---
Exam(s) MAMMO SCREENING EXAM: MAMMO SCREENING CLINICAL HISTORY: screening,Z12.39 TECHNIQUE: Bilateral full field digital CC and MLO mammographic images were obtained with 3D tomosyn thesis and utilizing computer aided detection (CAD). COMPARISON: Available for comparison. FINDINGS: Masses/Architectural Distortion: There appears to be new 5 mm nodular density in the upper-outer quad rant of the left breast approximately 12 cm from the nipple. There is a 2nd well-circumscribed nodul e in the upper outer quadrant of the left breast which appears stable. No areas of architectural dis tortion are present. Microcalcifications: No suspicious pleomorphic-type are seen. Skin Thickening/Nipple Retraction: None. IMPRESSION: 1. New 5 mm nodular density in the upper-outer quadrant of the left breast. 2. Further evaluation with a spot compression views requested. Ultrasound may be indicated at that t juan c. BI-RADS Category 0 - Incomplete: Need additional imaging evaluation Breast Density - Category B - Scattered areas of fibroglandular density Breast density category C or D implies that the patient has dense breast tissue. Dense breast tissue is very common and is not abnormal but dense breast tissue can make it harder to find cancer on a ma mmogram. Also, dense breast tissue may increase their breast cancer risk. This information about the result of the mammogram report was provided to the patient to raise their awareness. Use this report when you speak with the patient about their risks for breast cancer, which includes their family hist ory. At that time, you may recommend for more screening tests (Ultrasound or MRI) as they might be us eful based on their risk. A negative radiographic report should not delay biopsy if a dominant or clinically suspicious mass is present. Up to ten percent of cancers are not identified on mammography. A negative report may reinforce clinical impression. Adenosis and dense breasts may obscure an underlying neoplasm. False positive reports average 6 to 10%. Patient will receive a letter notifying them of these results.
== END 2025-02-09 02:29 ==
LOC: DI 02:10
PROVIDERS: PCP Family Medicine; Visit Provider Family Medicine
DX: Z12.31 Encounter for screening mammogram for malignant neoplasm of breast (principal); R92.323 Mammographic fibroglandular density, bilateral breasts
CPT/HCPCS: 77063; 77067

== ENCOUNTER 2025-02-11 00:38 | Outpatient (CLI) | payer MEDICARE, SELFPAY ==
--- NOTE | 2025-02-11 | DI.MAMMO_ITS ---
Exam(s) MG MAMMO SCREEN CALL BACK UNI US BREAST LT COMPLETE EXAM: MG MAMMO SCREEN CALL BACK UNI LEFT AND COMPLETE LEFT BREAST ULTRASOUND CLINICAL HISTORY: F/U MAMMO, NEW NODULAR DENSITY,UOQ LT BREAST,R92.8. TECHNIQUE: Unilateral LEFT BREAST spot mammographic images obtained with 3D tomosynthesisand Optifreezeizi ng computer aided detection (CAD). . Complete LEFT breast Ultrasound was also performed, including all 4 quadrants, the retroareolar regio n, and the ipsilateral axilla. COMPARISON: Prior mammograms were reviewed. This additional imaging was performed due to findings described on the recent screening mammogram of 02/09/2025. FINDINGS: DIAGNOSTIC MAMMOGRAM: Additional mammographic views performed todaydo not dissipate these findings. We proceeded with ultr asound COMPLETE LEFT BREAST ULTRASOUND: Ultrasound performed today reveals 2 findings which are in the upper outer quadrant. At the 1 o'clock position there is a slightly lobulated small nodule measuring approximately 4 x 3 mm which corresponds to one of the two findings on the mammogram in the upper-outer quadrant. At the 3 o'clock position there is a 4 millimeter finding which has appearance of a probable benign m icrocyst, also corresponding to 1 of the 2 mammographic findings. There are no other focal ultrasound findings in all 4 quadrants of the left breast. Scanning of the ipsilateral axilla reveals no significant adenopathy. IMPRESSION: 1. Two findings in the upper outer quadrant of the left breast on ultrasound which correspond to the findings on the mammogram, 1 of which is chronic and the other a new mammographic findings. Both m[place] ve benign appearances on ultrasound, as described above Appropriate follow-up as discussed by myself with the patient today is repeat left breast mammogram a nd ultrasound in 6 months. The patient was informed of these findings and recommendations by myself prior to leaving the departm ent today. BI-RADS Category 3 - 6 month - Probably Benign Finding: Recommend follow-up mammography and ultrasoun d in 6 months Breast Density - Category B - Scattered areas of fibroglandular density Breast density Category C or D implies that the patient has dense breast tissue. Dense breast tissue can make it harder to find cancer on a mammogram. Dense breast tissue is also associated with an incr eased risk of breast cancer. This information about the result of the mammogram report was provided to the patient to raise their awareness. Use this report when you speak with the patient about their risks for breast cancer, which includes their family history. At that time, you may recommend additional screening tests (Ultrasoun d or MRI) as these tests may add significant information. A negative radiographic report should not delay biopsy if a dominant or clinically suspicious mass is present. Up to ten percent of cancers are not identified on mammography. A negative report may reinforce clinical impression. Adenosis and dense breasts may obscure an underlying neoplasm. False positive reports average 6 to 10%. Patient will receive a letter notifying them of these results.
== END 2025-02-11 00:58 ==
LOC: DI 00:39
PROVIDERS: PCP Family Medicine; Visit Provider Family Medicine
DX: R92.8 Other abnormal and inconclusive findings on diagnostic imaging of breast (principal); Z12.31 Encounter for screening mammogram for malignant neoplasm of breast
CPT/HCPCS: 76642; 77063; 77067

== ENCOUNTER → 2025-03-29 14:48 | Outpatient (BNVA) | payer MEDICARE, SELFPAY | PROVIDERS: PCP Family Medicine; Referring Provider Family Medicine; Visit Provider Nurse Practitioner Gerontology | DX: R39.15 Urgency of urination (principal) | CPT/HCPCS: 99213; 51798 ==

== ENCOUNTER 2025-05-23 03:03 | Outpatient (CLI) | payer MEDICARE, SELFPAY ==
[2025-05-23 12:21] LABS: Abs Immature Grans 0.01 10^3/uL (0.0-0.06); HCT 39.2 % (36.0-46.0); HGB 13.0 g/dL (11.2-15.7); Immature Grans % 0.3 %; MCH 32.3 pg (27.0-33.0); MCHC 33.2 % (32.0-36.0); MCV 98 fL (80-95); MPV 11.5 fL (8.0-11.0); Platelet Count 197 10^3/uL (130-400); RBC 4.02 10^6/uL (3.93-5.22); RDW 13.5 % (11.7-14.6); RDW-SD 48.6 fL; WBC 3.90 10^3/uL (4.4-10.8)
[2025-05-23 13:34] LABS: ALT 28 U/L (14-59); AST 21 U/L (15-37); Albumin 3.8 g/dL (3.4-5.0); Alkaline Phosphatase 56 U/L (46-116); Anion Gap 5.5 mmol/L (3-11); BUN 10 mg/dL (7-18); Bilirubin, Total 0.5 mg/dL (0.2-1.0); CO2 30.5 mmol/L (21.0-32.0); Calcium 8.9 mg/dL (8.5-10.1); Chloride 101 mmol/L (98-107); Estimated GFR 81.72 (mL/min/1.73m2); Glucose 89 mg/dL (74-106); Potassium 4.2 mmol/L (3.5-5.1); Sodium 137 mmol/L (136-145); TSH (W/Ref FT4) 2.00 uIU/mL (0.36-3.74); Total Protein 6.9 g/dL (6.4-8.2); Vitamin B12 794 pg/mL (193-986); Vitamin D 25 Total 49 ng/mL (30-100)
== END 2025-05-23 03:04 | disposition home or self-care (01) ==
LOC: LOS 03:03
PROVIDERS: PCP Family Medicine; Visit Provider Family Medicine
DX: E03.9 Hypothyroidism, unspecified (principal); R20.2 Paresthesia of skin; M79.601 Pain in right arm; M79.602 Pain in left arm; R29.898 Other symptoms and signs involving the musculoskeletal system; G89.4 Chronic pain syndrome; M48.02 Spinal stenosis, cervical region; Z98.890 Other specified postprocedural states; E66.812 Obesity, class 2; Z68.38 Body mass index [BMI] 38.0-38.9, adult; E66.09 Other obesity due to excess calories; Z00.00 Encounter for general adult medical examination without abnormal findings
CPT/HCPCS: 36415; 80053; 82306; 82607; 84443; 85025

== ENCOUNTER 2025-06-17 00:12 | Outpatient (CLI) | payer MEDICARE, SELFPAY ==
--- NOTE | 2025-06-17 06:00 | DI.MRI_ITS ---
Exam(s) MR CERVICAL SPINE WO/W EXAM: MR CERVICAL SPINE WO/W CLINICAL HISTORY: left hand weakness,chronic pain,spinal stenosis TECHNIQUE: Multiplanar multisequence MRI of the cervical spine was performed without intravenous contrast. COMPARISON: MR MR CERVICAL SPINE WO from 10/25/2022 FINDINGS: CERVICOMEDULLARY JUNCTION: Intact with no evidence of cerebellar tonsillar ectopia. No obvious abnormality of the odontoid process. No evidence of Chiari 1 malformation. CERVICAL SPINAL CORD: Again noted is evidence of anterior fusion from C4 through C6 and there is again noted multilevel signal abnormality in the cervical spinal cord which appears relatively similar to the prior MRI study of October 2022. OSSEOUS:C4 through C6 fusion again noted. No fractures. No new abnormal marrow signal. INDIVIDUAL LEVELS: C2-3: Advanced disc space narrowing and anterior osteophytes again noted. Right-sided disc-Luschka joint osteophyte complex again noted. This is ago noted to efface the anterior right side of the thecal sac at this level. The associated disc protrusion on the right side at this level appears to have slightly increased in size as seen best on the sagittal images. There is significant right-sided foraminal stenosis noted. No significant foraminal stenosis on the left side. No significant abnormal enhancement evident at this level. There is moderate facet arthropathy on the right side. There is minimal if any significant facet arthropathy on the left side. C3-4: This level is 1 level above the fusion and exhibits chronic disc space narrowing and bilateral disc-Luschka joint osteophyte complexes. This is again noted be more prominent on the right side. This indents the anterior right side of the thecal sac. There is moderate central canal stenosis at this level due to broad annular bulging and asymmetric right side annular bulging, similar to previous.. This is also associated with right-sided foraminal stenosis, similar to previous. The Luschka joint osteophyte on the left side is associated with less disc findings when compared to the right. There is no abnormal enhancement at this level. C4-5: This is a fused level. There is no disc herniation. Central canal dimensions are lower normal. Some bilateral foraminal stenosis is again noted. No significant facet arthropathy. Appears similar to the prior study. No abnormal enhancement seen at this level. C5-6: Fused level. No disc herniation. There is moderate central canal stenosis and mild bilateral foraminal stenosis again noted. There is no significant facet arthropathy at this level. There is significant signal abnormality in the spinal cord at this level again noted. C6-7: There is again noted chronic advanced disc space narrowing at this level. A focus of increased signal seen in the posterior annulus at this level is again noted. The amount of annular bulging at this level appears unchanged from the prior study and there is moderate central spinal canal stenosis again evident at this level as well as some bilateral foraminal narrowing. The amount of signal abnormality in the cord at this level is unchanged from previous. There is no abnormal enhancement. C7-T1: No disc herniation nor central canal stenosis. There are degenerative changes in the left facet joint at this level again noted. Minimal if any significant degenerative change in the right facet joint. There is no disc herniation or central canal stenosis at this level. Some left-sided foraminal stenosis is again noted. No foraminal stenosis on the right side. No abnormal enhancement. T1-T2: Unremarkable. No new findings. T2-T3: The previously described disc protrusion at this level is again noted, similar to the study of October 2022 and predominately right-sided and again causing significant right-sided foraminal stenosis at this level. There is no foraminal stenosis on the left side. IMPRESSION: 1. Multilevel findings as described individually above and which appear similar to findings of the MRI of 10/25/2022 2. 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 This is most focal at C6 level. 3. There is significant central spinal canal stenosis at multiple levels. This is most prominent at the C6-7 level. DATA REPOSITORY:
[2025-06-17] MEDS: Normal Saline Flush 10 ML SYR IVP (07:55)
[2025-06-17] MEDS: Gadoterate meglumine 20 ML SYRINGE IVP (07:55)
== END 2025-06-17 00:32 ==
LOC: DI 00:12
PROVIDERS: PCP Family Medicine; Visit Provider Family Medicine
DX: R20.2 Paresthesia of skin (principal); M79.601 Pain in right arm; M79.602 Pain in left arm; R29.898 Other symptoms and signs involving the musculoskeletal system; G89.4 Chronic pain syndrome; M48.02 Spinal stenosis, cervical region; Z98.890 Other specified postprocedural states
CPT/HCPCS: 72156

== ENCOUNTER 2025-07-14 09:35 | Outpatient (CLI) | payer MEDICARE, SELFPAY ==
--- NOTE | 2025-07-14 06:00 | DI.MAMMO_ITS ---
Exam(s) MG MAMMO DIAGNOSTIC UNI US BREAST LT LIMITED EXAM: MG MAMMO DIAGNOSTIC UNI CLINICAL HISTORY: 6 mo f/u,luoq findings,abnl mammo, r92.8. COMPARISON: MG MG MAMMO SCREENING from 02/09/2025 US US BREAST LT COMPLETE from 02/11/2025 MG MG MAMMO SCREEN CALL BACK UNI from 02/11/2025 US US BREAST LT LIMITED from 07/14/2025 TECHNIQUE: Craniocaudal and mediolateral oblique Full Field Digital Mammography views of left with Computer Aided Diagnosis followed by Tomosynthesis and left breast ultrasound. FINDINGS: Mammography/Tomosynthesis: Masses: 2 small nodules are again noted in the upper outer quadrant. Architectural Distortion: None seen. Microcalcifications: No suspicious pleomorphic-type are seen. Skin Thickening/Nipple Retraction: None. Left breast US: Echotexture: Normal appearance of the glandular tissue. Shadowing: No suspicious foci. Cyst: 4 x 2 x 4 millimeters cyst 1 o'clock position 5 cm from the nipple. Solid lesions: 5 x 2 x 4 millimeter hypoechoic nodule with central fatty hilum the 3 o'clock position 8 cm from the nipple, consistent with intramammary lymph node, unchanged. Ductal dilation: None. IMPRESSION: 1. No evidence of malignancy is noted. 2. Unless there is more urgent need, follow-up screening mammography is recommended,, due in 6 months. BI-RADS Category 2 - Benign Findings Breast Density - Category B - There are scattered areas of fibroglandular density. Breast density Category C or D implies that the patient has dense breast tissue. Dense breast tissue can make it harder to find cancer on a mammogram. Dense breast tissue is also associated with an increased risk of breast cancer. This information about the result of the mammogram report was provided to the patient to raise their awareness. Use this report when you speak with the patient about their risks for breast cancer, which includes their family history. At that time, you may recommend additional screening tests (Ultrasound or MRI) as these tests may add significant information. A negative radiographic report should not delay biopsy if a dominant or clinically suspicious mass is present. Up to ten percent of cancers are not identified on mammography. A negative report may reinforce clinical impression. Adenosis and dense breasts may obscure an underlying neoplasm. False positive reports average 6 to 10%. Patient will receive a letter notifying them of these results.
== END 2025-07-14 09:55 ==
LOC: DI 09:36
PROVIDERS: PCP Family Medicine; Visit Provider Family Medicine
DX: Z12.31 Encounter for screening mammogram for malignant neoplasm of breast (principal); N63.25 Unspecified lump in the left breast, overlapping quadrants
CPT/HCPCS: 76642; 77061; 77065; G0279

== ENCOUNTER → 2025-08-15 14:01 | Outpatient (BNVA) | payer MEDICARE, SELFPAY | PROVIDERS: PCP Family Medicine; Referring Provider Family Medicine; Visit Provider Psychiatry & Neurology Neurology | DX: M54.2 Cervicalgia (principal); G56.02 Carpal tunnel syndrome, left upper limb; I10 Essential (primary) hypertension | CPT/HCPCS: 95909; 95886; 95887 ==